=== PATIENT | male | born 1945 | race Caucasian/White ===

== ENCOUNTER 2018-05-09 11:20 | Emergency (ER) | payer MEDICARE ==
[2018-05-09 11:39] VITALS: O2SAT 97
[2018-05-09 12:26] LABS: BASOPHIL % 0.2 % (0.0-0.4); Basophil (Absolute #) 0.02 (0-0.4); Eosinophil % 6.6 % (0.00-5.0); Eosinophil (Absolute #) 0.58 (0-0.5); Granulocyte Absolute (ANC) 6.35 (1.4-6.9); Granulocytes % 72.2 % (36.0-66.0); Hematocrit 33.2 % (42-50); Hemoglobin 10.7 gm/dl (12.5-18.0); Lymphocyte (Absolute #) 1.11 (1.0-4.6); Lymphocytes % 12.6 % (24.0-44.0); Mean Cell Volume 98.8 fl (78-100); Mean Corpuscular Hemoglobin 31.8 pg (26-32); Mean Corpuscular Hgb Concent. 32.2 g/dl (32-36); Mean Platelet Volume 10.6 fl (6-9.5); Monocyte (Absolute #) 0.74 (0.0-1.3); Monocytes % 8.4 % (0.0-12.0); Platelet Count 171 K/mm3 (150-450); Red Blood Count 3.36 M/mm3 (4.1-5.6); Red Cell Distribution Width 15.7 % (11.5-14.0); White Blood Count 8.8 K/mm3 (4.0-10.5)
[2018-05-09 12:30] LABS: ALBUMIN 4.2 g/dL (3.5-5.0); ANION GAP 25.3 MEQ/L (5-15); BILIRUBIN,TOTAL 0.4 mg/dL (0.2-1.3); Calcium 8.8 mg/dL (8.4-10.2); Potassium 5.6 mmol/L (3.5-5.1)
--- NOTE | 2018-05-09 12:58 | XRAY ---
Indication: Status post fall. Multiple contiguous axial images obtained through the head without contrast. Comparison: None Age-appropriate global atrophy and minimal periventricular degenerative micro-ischemia. No acute intracranial hemorrhage, abnormal extra-axial fluid collection, or mass effect. Fourth ventricle is midline without hydrocephalus. Bony calvarium intact. 2 cm polyp/retention cyst in the floor of the right maxillary sinus. Remaining visualized paranasal sinuses and mastoid air cells are clear. Impression: Nonacute senile brain. Incidental right maxillary sinus polyp/retention cyst. CT DI 50.53
[2018-05-09 13:11] LABS: Creatinine 1 18.44 mg/dL (0.66-1.25)
--- NOTE | 2018-05-09 13:20 | ERPHSYRPT ---
- History of Present Illness Source: patient Exam Limitations: no limitations Patient Subjective Stated Complaint: pt here for hypertension today and a fall last night. he states he was sitting in a desk chair when he bent over to pick something up he fell over, and hit hes head on right side on a table, Triage Nursing Assessment: pt arrived per wc, alert, resp easy, skin w/d/p. has slight contusion to right side on head and swelling and bruising to left knee, pt able to get self up with minimal assist of one, pt is alert, with no facial drooping, pt has missed one diaylasis apt this week Physician History: Pt presented to the ED from PT. He was doing his PT and was found to have HTN, and told the therapies, that he fell yesterday, and missed two HD sessions ( Monday and today). The therapist was worried about head injury and HTN and pt was sent to the ED. Pt states, did not feel well, so skipped his HD. He denies F/C/S. No N/V/D or abdominal pain. No SOB or cough. No change in vision, sensation or paralysis. Occurred: yesterday Severity: mild Head Injury Location: temporal (on the R) Method of Injury: fell Loss of Consciousness: no loss of consciousness Associated Symptoms: denies symptoms Allergies/Adverse Reactions: aspirin Allergy (Mild, Verified 05/09/18 11:39) Runny Nose NOSE BLEEDS furosemide [From Lasix] Allergy (Mild, Verified 05/09/18 11:39) Rash mycophenolate mofetil [From CellCept] Allergy (Mild, Verified 05/09/18 11:39) Blisters CAUSED GOUT, CELLULITIS, AND RISE IN B/P cephalexin monohydrate [From Keflex] Allergy (Verified 05/09/18 11:39) sevelamer HCl [From Renagel] Allergy (Verified 05/09/18 11:39) Itching Sulfa (Sulfonamide Antibiotics) Allergy (Verified 05/09/18 11:39) Rash vancomycin Allergy (Verified 05/09/18 11:39) Rash cinacalcet [From Sensipar] Adverse Reaction (Verified 05/09/18 11:39) Rash Home Medications: Febuxostat [Uloric] 40 mg PO DAILY 09/12/12 [History] Levothyroxine Sodium 100 Mcg [Synthroid 100 Mcg] 300 mcg PO DAILY 09/12/12 [History] Multivitamin W-Minerals/Lutein [Centrum Silver Tablet] 1 each PO DAILY 10/28/14 [History] Acetaminophen 325 mg [Tylenol 325 mg] 650 mg PO STAT 03/16/17 [History] Calcium Carbonate [Tums] 1,000 mg PO UD 03/16/17 [History] Clonidine HCl 0.1 mg [Catapres 0.1 MG] 0.2 mg PO DAILY 03/16/17 [History] Denosumab 60 mg [Prolia 60 mg Injection] 60 mg SQ UD 03/16/17 [History] Loperamide HCl 2 mg [Imodium 2 mg] 1 mg PO UD 03/16/17 [History] Sevelamer Carbonate [Renvela] 800 mg PO UD 03/16/17 [History] Warfarin Sodium [Coumadin] 7.5 mg PO DAILY 03/16/17 [History] Hx Tetanus, Diphtheria Vaccination/Date Given: Yes (UP TO DATE) Hx Influenza Vaccination/Date Given: Yes Hx Pneumococcal Vaccination/Date Given: Yes - Review of Systems Constitutional: No Fever, No Chills Eyes: No Symptoms Ears, Nose, & Throat: No Symptoms Respiratory: No Cough, No Dyspnea Cardiac: No Chest Pain, No Edema, No Syncope Abdominal/Gastrointestinal: No Abdominal Pain, No Nausea, No Vomiting, No Diarrhea Musculoskeletal: No Back Pain, No Neck Pain Neurological: No Dizziness, No Focal Weakness, No Sensory Changes - Past Medical History Pertinent Past Medical History: Yes Neurological History: No Pertinent History ENT History: No Pertinent History Cardiac History: High Cholesterol, Hypertension Respiratory History: Asthma Endocrine Medical History: Hypothyroidism Musculoskeletal History: No Pertinent History GI Medical History: No Pertinent History History: Renal Disease Psycho-Social History: No Pertinent History Male Reproductive Disorders: No Pertinent History Other Medical History: GOUT. CELLULITIS IVON LOWER EXTREMETIES. GLOMERUSCLEROSIS. STAGE IV KIDNEY DISEASE. POLYCETHEMIA. ARTERIOSCLEROSIS - Past Surgical History Past Surgical History: Yes Neuro Surgical History: No Pertinent History Cardiac: Cardiac Catheterization Respiratory: No Pertinent History Gastrointestinal: No Pertinent History Genitourinary: No Pertinent History Musculoskeletal: Joint Replacement Male Surgical History: No Pertinent History Other Surgical History: APPENDIX REMOVED 1953. CYST REMOVED FROM TAILBONE 1966. CYST REMOVED FROM HEAD-1980; 1994; 2005. LEFT KNEE REPLACEMENT 01/2002. fistula placed - Social History Smoking Status: Never smoker Exposure to second hand smoke: No Drug Use: none Patient Lives Alone: No - Nursing Vital Signs Nursing Vital Signs: Initial Vital Signs Temperature 97.2 F 05/09/18 11:27 Pulse Rate 63 05/09/18 11:27 Respiratory Rate 20 05/09/18 11:27 Blood Pressure 187/96 05/09/18 11:27 O2 Sat by Pulse Oximetry 97 05/09/18 11:27 Pain Scale Pain Intensity 8 - [place] Coma Score Best Eye Response ([place]): (4) open spontaneously Best Verbal Response ([place]): (5) oriented Best Motor Response ([place]): (6) obeys commands [place] Total: 15 - Physical Exam General Appearance: no apparent distress, alert Eye Exam: bilateral eye: normal inspection, PERRL, EOMI ENT Exam: airway nml Neck Exam: supple, trachea midline, full range of motion, normal alignment Cardiovascular/Respiratory Exam: chest non-tender, normal breath sounds, regular rate/rhythm Gastrointestinal/Abdominal Exam: soft, non tender, no distention Extremity Exam: non-tender, normal range of motion, normal inspection Mental Status Exam: alert, oriented x 3, 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 No bleed.) Ordered Tests: Active Orders 24 hr Category Date Time Status HEAD WITHOUT CONTRAST [CT] Stat Exams 05/09/18 11:40 Completed CBC W DIFF Stat Lab 05/09/18 12:11 Completed CMP Stat Lab 05/09/18 12:11 Completed Lab/Rad Data: Laboratory Result Diagrams 05/09/18 12:11 05/09/18 12:11 Laboratory Results 05/09/18 05/09/18 Range/Units 12:11 12:11 WBC 8.8 (4.0-10.5) K/mm3 RBC 3.36 L (4.1-5.6) M/mm3 Hgb 10.7 L (12.5-18.0) gm/dl Hct 33.2 L (42-50) % MCV 98.8 (78-100) fl MCH 31.8 (26-32) pg MCHC 32.2 (32-36) g/dl RDW 15.7 H (11.5-14.0) % Plt Count 171 (150-450) K/mm3 MPV 10.6 H (6-9.5) fl Gran % 72.2 H (36.0-66.0) % Eos # (Auto) 0.58 H (0-0.5) Absolute Lymphs (auto) 1.11 (1.0-4.6) Absolute Monos (auto) 0.74 (0.0-1.3) Lymphocytes % 12.6 L (24.0-44.0) % Monocytes % 8.4 (0.0-12.0) % Eosinophils % 6.6 H (0.00-5.0) % Basophils % 0.2 (0.0-0.4) % Absolute Granulocytes 6.35 (1.4-6.9) Basophils # 0.02 (0-0.4) Sodium 138 (137-145) mmol/L Potassium 5.6 H (3.5-5.1) mmol/L Chloride 95 L (98-107) mmol/L Carbon Dioxide 24 (22-30) mmol/L Anion Gap 25.3 H (5-15) MEQ/L BUN 132 H (9-20) mg/dL Creatinine 18.44 H (0.66-1.25) mg/dL Estimated GFR 2.7 ML/MIN Glucose 89 (74-106) mg/dL Calcium 8.8 (8.4-10.2) mg/dL Total Bilirubin 0.40 (0.2-1.3) mg/dL AST 11 L (17-59) U/L ALT 11 (0-50) U/L Alkaline Phosphatase 46 (38-126) U/L Serum Total Protein 7.0 (6.3-8.2) g/dL Albumin 4.2 (3.5-5.0) g/dL - Progress Progress: unchanged Progress Note: 05/09/18 13:[address] of head that r/o head bleed. He did have labs that showed increased sCr and BUN as well as K of 5.6. Pt will be d/c and will go to HD straight from ER. Pt's will come to pick him up and drive him to HD. Will see patient in: office Counseled pt/family regarding: need for follow-up - Departure Time of Disposition: 13:23 Departure Disposition: Home Clinical Impression: Head injury Condition: Stable Critical Care Time: No Referrals: BERNARDA TORRES [Primary Care Provider] - Additional Instructions: Go straight to HD post D/C. Do not miss any sessions. F/U with PCP.
[2018-05-09 14:25] VITALS: BP 178/86; PULSE 68
== END 2018-05-09 14:23 | disposition home or self-care (01) ==
LOC: ED 11:20
DX: S09.90XA Unspecified injury of head, initial encounter (principal); W07.XXXA Fall from chair, initial encounter; Y93.89 Activity, other specified; Y92.89 Other specified places as the place of occurrence of the external cause; I10 Essential (primary) hypertension; Z79.01 Long term (current) use of anticoagulants; Z79.899 Other long term (current) drug therapy; E78.00 Pure hypercholesterolemia, unspecified; J45.909 Unspecified asthma, uncomplicated; E03.9 Hypothyroidism, unspecified; N28.9 Disorder of kidney and ureter, unspecified
CPT/HCPCS: 36415; 70450; 80053; 85025; 99284

== ENCOUNTER 2018-10-17 09:14 | Emergency (ER) | payer MEDICARE | END 2018-10-17 14:12 | disposition short-term general hospital (02) | LOC: ED 09:14 ==

== ENCOUNTER 2019-02-20 20:09 | Observation (INO) | payer SELFPAY ==
[2019-02-20] MEDS ORDERED: MORPHINE SULFATE 2 MG INJ IV ONE (22:15)
[2019-02-20] MEDS ORDERED: Zofran 4 MG/2 ML VIAL IV ONE (22:15)
--- NOTE | 2019-02-20 22:21 | ERPHSYRPT ---
- History of Present Illness Time Seen by Provider: 02/20/19 22:00 Source: patient, family Exam Limitations: no limitations Patient Subjective Stated Complaint: pt states he fell on monday and now has pain in l hip and bruising. states he did not want to see a dr on monday when he fell because he was not hurting so bad. pain has gotten worse over last few days and now cannot ambulate. Triage Nursing Assessment: pt alert and oriented, pt states his leg is swollen and he is having pain 8/10 in l leg, l hip is bruised and had blood blisters on l hip that broke open. Physician History: patient fell at the dialysis center after the dialysis 2 days ago on Monday. Patient is on Coumadin. The patient says he was not hurting him that on Monday so did not see the doctor but today the pain has gotten worse. Patient has a pain in the left hip and also has a skin tear in the left elbow. Has a small skin tear on the left buttock. Occurred: days ago (3) Injuries/Pain Location: upper extremity, lower extremity Loss of Consciousness: no loss of consciousness Quality: fullness, pressure, throbbing Severity of Pain-Max: mild Severity of Pain-Current: moderate Modifying Factors: Improves With: movement Associated Symptoms (Fall): extremity injury, muscle spasms, nausea, No abdominal pain, No back pain, No confusion, No chest pain, No dizziness, No headache, No lightheadedness, No ringing in ears, No seizures, No shortness of breath, No slurred speech Allergies/Adverse Reactions: aspirin Allergy (Mild, Verified 05/09/18 11:39) Runny Nose NOSE BLEEDS furosemide [From Lasix] Allergy (Mild, Verified 05/09/18 11:39) Rash mycophenolate mofetil [From CellCept] Allergy (Mild, Verified 05/09/18 11:39) Blisters CAUSED GOUT, CELLULITIS, AND RISE IN B/P ANA MARIA Inhibitors Allergy (Verified 10/17/18 09:44) Beta-Blockers (Beta-Adrenergic Bloc Allergy (Verified 10/17/18 09:44) Swelling calcium [From PhosLo] Allergy (Verified 10/17/18 09:44) cephalexin monohydrate [From Keflex] Allergy (Verified 05/09/18 11:39) clarithromycin Allergy (Verified 10/17/18 09:44) epoetin beta [From Mircera] Allergy (Verified 10/17/18 09:44) ferric citrate [From Auryxia] Allergy (Verified 10/17/18 09:44) fluticasone [From Flonase] Allergy (Verified 10/17/18 09:44) hydralazine Allergy (Verified 10/17/18 09:44) Diarrhea indomethacin Allergy (Verified 10/17/18 09:44) promethazine [From Phenergan] Allergy (Verified 10/17/18 09:44) ranitidine Allergy (Verified 10/17/18 09:44) sevelamer HCl [From Renagel] Allergy (Verified 05/09/18 11:39) Itching sucroferric oxyhydroxide [From Velphoro] Allergy (Verified 10/17/18 09:44) Sulfa (Sulfonamide Antibiotics) Allergy (Verified 05/09/18 11:39) Rash valsartan [From Diovan] Allergy (Verified 10/17/18 09:44) vancomycin Allergy (Verified 05/09/18 11:39) Rash cinacalcet [From Sensipar] Adverse Reaction (Verified 05/09/18 11:39) Rash Home Medications: Febuxostat [Uloric] 40 mg PO DAILY 09/12/12 [History] Levothyroxine Sodium 100 Mcg [Synthroid 100 Mcg] 75 mcg PO DAILY 09/12/12 [ History] Acetaminophen 325 mg [Tylenol 325 mg] 650 mg PO Q6HPRN PRN 03/16/17 [ History] Calcium Carbonate [Tums] 1,000 mg PO UD 03/16/17 [History] Clonidine HCl 0.1 mg [Catapres 0.1 MG] 0.1 mg PO UD 03/16/17 [History] Sevelamer Carbonate [Renvela] 800 mg PO UD 03/16/17 [History] Cholecalciferol (Vitamin D3) [Vitamin D3] 2,000 unit PO BID 10/17/18 [History] Hx Tetanus, Diphtheria Vaccination/Date Given: Yes (UP TO DATE) Hx Influenza Vaccination/Date Given: Yes Hx Pneumococcal Vaccination/Date Given: Yes - Review of Systems Constitutional: No Fever, No Chills Eyes: No Symptoms Ears, Nose, & Throat: No Symptoms Respiratory: No Cough, No Dyspnea Cardiac: No Chest Pain, No Edema, No Syncope Abdominal/Gastrointestinal: No Abdominal Pain, No Nausea, No Vomiting, No Diarrhea Genitourinary Symptoms: No Dysuria Musculoskeletal: Other (pain in the left hip and also has a skin tear in the left elbow. Has a small skin tear on the left buttock.), No Back Pain, No Neck Pain Skin: Other (skin tear on her left buttock and left elbow.), No Rash Neurological: No Dizziness, No Focal Weakness, No Sensory Changes Psychological: No Symptoms Endocrine: No Symptoms All Other Systems: Reviewed and Negative - Past Medical History Pertinent Past Medical History: Yes Neurological History: No Pertinent History ENT History: No Pertinent History Cardiac History: High Cholesterol, Hypertension Respiratory History: Asthma Endocrine Medical History: Hypothyroidism Musculoskeletal History: No Pertinent History GI Medical History: No Pertinent History History: Renal Disease Psycho-Social History: No Pertinent History Male Reproductive Disorders: No Pertinent History Other Medical History: GOUT. CELLULITIS IVON LOWER EXTREMETIES. GLOMERUSCLEROSIS. STAGE IV KIDNEY DISEASE. POLYCETHEMIA. ARTERIOSCLEROSIS - Past Surgical History Past Surgical History: Yes Neuro Surgical History: No Pertinent History Cardiac: Cardiac Catheterization Respiratory: No Pertinent History Gastrointestinal: No Pertinent History Genitourinary: No Pertinent History Musculoskeletal: Joint Replacement Male Surgical History: No Pertinent History Other Surgical History: APPENDIX REMOVED 1953. CYST REMOVED FROM TAILBONE 1966. CYST REMOVED FROM HEAD-1980; 1994; 2005. LEFT KNEE REPLACEMENT 01/2002. fistula placed - Social History Smoking Status: Never smoker Exposure to second hand smoke: No Drug Use: none Patient Lives Alone: No - Nursing Vital Signs Nursing Vital Signs: Initial Vital Signs Temperature 98.4 F 02/20/19 22:01 Pulse Rate 90 02/20/19 22:01 Respiratory Rate 18 02/20/19 22:01 Blood Pressure 110/82 02/20/19 22:01 O2 Sat by Pulse Oximetry 97 02/20/19 22:01 Pain Scale Pain Intensity 8 - [place] Coma Score Best Eye Response ([place]): (4) open spontaneously Best Verbal Response ([place]): (5) oriented Best Motor Response ([place]): (6) obeys commands [place] Total: 15 - Physical Exam General Appearance: no apparent distress, alert Head Injury: no evidence of injury Eye Exam: PERRL/EOMI ENT Exam: airway nml Neck Exam: normal inspection, No tenderness Respiratory/Chest Exam: normal breath sounds, No chest tenderness, No respiratory distress Cardiovascular Exam: normal heart sounds, regular rate/rhythm Gastrointestinal Exam: soft, No tenderness, No distention, No guarding, No ecchymosis Back Exam: normal inspection, No vertebral tenderness Extremity Exam: normal inspection, normal range of motion, pelvis stable, other (left HEENT: Painful, tender, swollen, bruised, subcutaneous hematoma. Pain volar range of motion. The skin tears present. Left elbow skin tear. Normal distal neurovascular function.), No deformities Neurologic Exam: alert, oriented x 3, cooperative, sensation nml, No motor deficits Skin Exam: normal color, warm, dry, other (left HEENT: Painful, tender, swollen , bruised, subcutaneous hematoma. Pain volar range of motion. The skin tears present. Left elbow skin tear. Normal distal neurovascular function.) SpO2 Interpretation: normal SpO2: 97 O2 Delivery: Room Air - Course Nursing assessment & vital signs reviewed: Yes - CT Exams Other CT Interpretation: Tele-radiologist Report, Other (imaging [place] the lateral aspect of the left hip.) Ordered Tests: Active Orders 24 hr Category Date Time Status IV Insertion STAT Care 02/20/19 22:15 Active LOWER EXTREMITY WO CONTRAST [CT] Stat Exams 02/20/19 22:17 Taken CBC W DIFF Stat Lab 02/20/19 23:27 Completed CMP Stat Lab 02/20/19 23:27 Completed PROTIME WITH INR Stat Lab 02/20/19 23:27 Completed PTT Stat Lab 02/20/19 23:27 Completed Medication Summary Discontinued Medications Generic Name Dose Route Start Last Admin Trade Name Freq PRN Reason Stop Dose Admin Morphine Sulfate 2 mg 02/20/19 22:15 Morphine Sulfate 2 Mg Inj IV 02/20/19 22:16 STAT ONE Morphine Sulfate Confirm 02/20/19 23:53 Morphine Sulfate 2 Mg Inj Administered 02/20/19 23:54 Dose 2 mg .ROUTE .STK-MED ONE Ondansetron HCl 4 mg 02/20/19 22:15 Zofran 4 Mg/2 Ml Vial IV 02/20/19 22:16 STAT ONE Ondansetron HCl Confirm 02/20/19 23:52 Zofran 4 Mg/2 Ml Vial Administered 02/20/19 23:53 Dose 4 mg .ROUTE .STK-MED ONE Phytonadione 10 mg 02/20/19 23:52 Vitamin K 10 Mg/Ml IV 02/20/19 23:53 STAT ONE Phytonadione Confirm 02/20/19 23:52 Vitamin K 10 Mg/Ml Administered 02/20/19 23:53 Dose 10 mg .ROUTE .STK-MED ONE Lab/Rad Data: Laboratory Result Diagrams 02/20/19 23:27 02/20/19 23:27 Laboratory Results 02/20/19 02/20/19 02/20/19 Range/Units 23:27 23:27 23:27 WBC 10.4 (4.0-10.5) K/mm3 RBC 2.38 L (4.1-5.6) M/mm3 Hgb 7.2 L (12.5-18.0) gm/dl Hct 23.3 L (42-50) % MCV 97.9 (78-100) fl MCH 30.3 (26-32) pg MCHC 30.9 L (32-36) g/dl RDW 16.8 H (11.5-14.0) % Plt Count 161 (150-450) K/mm3 MPV 10.3 H (6-9.5) fl Gran % 73.2 H (36.0-66.0) % Eos # (Auto) 0.56 H (0-0.5) Absolute Lymphs (auto) 1.12 (1.0-4.6) Absolute Monos (auto) 1.05 (0.0-1.3) Lymphocytes % 10.7 L (24.0-44.0) % Monocytes % 10.1 (0.0-12.0) % Eosinophils % 5.4 H (0.00-5.0) % Basophils % 0.6 (0.0-0.4) % Absolute Granulocytes 7.64 H (1.4-6.9) Basophils # 0.06 (0-0.4) PT 75.3 H (8.83-12.87) SECONDS INR 6.41 H* (0.8-3.0) APTT 52.7 H (24.1-36.1) SECONDS Sodium 140 (137-145) mmol/L Potassium 4.5 (3.5-5.1) mmol/L Chloride 96 L (98-107) mmol/L Carbon Dioxide 30 (22-30) mmol/L Anion Gap 17.4 H (5-15) MEQ/L BUN 79 H (9-20) mg/dL Creatinine 10.03 H (0.66-1.25) mg/dL Estimated GFR 5.5 ML/MIN Glucose 73 L (74-106) mg/dL Calcium 9.2 (8.4-10.2) mg/dL Total Bilirubin 0.50 (0.2-1.3) mg/dL AST 19 (17-59) U/L ALT 13 (0-50) U/L Alkaline Phosphatase 55 (38-126) U/L Serum Total Protein 7.0 (6.3-8.2) g/dL Albumin 3.8 (3.5-5.0) g/dL - Progress Progress: improved Progress Note: 02/21/19 00:03 patient's INR is 6.41. He has a huge left hip hematoma with a skin tear. I discussed this with Dr. Arboleda. He agreed to admit the patient overnight for observation because of the high INR and a left hip pain due to hematoma. Discussed with : Merle Will see patient in: hospital (observation) Counseled pt/family regarding: diagnosis, rad results - Departure Departure Disposition: Observation Clinical Impression: Hematoma of left hip Qualifiers: Encounter type: initial encounter Qualified Code(s): S70.02XA - Contusion of left hip, initial encounter Coumadin toxicity Qualifiers: Encounter type: initial encounter Injury intent: accidental or unintentional Qualified Code(s): T45.511A - Poisoning by anticoagulants, accidental ( unintentional), initial encounter Condition: Stable Critical Care Time: No Referrals: PARTHA NAPIER [LOCATION] -
[2019-02-20 23:28] LABS: Absolute Neutrophil Ct (ANC) 7.64 (1.4-6.9); BASOPHIL % 0.6 % (0.0-0.4); Basophil (Absolute #) 0.06 (0-0.4); Eosinophil % 5.4 % (0.00-5.0); Eosinophil (Absolute #) 0.56 (0-0.5); Hematocrit 23.3 % (42-50); Hemoglobin 7.2 gm/dl (12.5-18.0); Lymphocyte (Absolute #) 1.12 (1.0-4.6); Lymphocytes % 10.7 % (24.0-44.0); Mean Cell Volume 97.9 fl (78-100); Mean Corpuscular Hemoglobin 30.3 pg (26-32); Mean Corpuscular Hgb Concent. 30.9 g/dl (32-36); Mean Platelet Volume 10.3 fl (6-9.5); Monocyte (Absolute #) 1.05 (0.0-1.3); Monocytes % 10.1 % (0.0-12.0); Neutrophil % 73.2 % (36.0-66.0); Platelet Count 161 K/mm3 (150-450); Red Blood Count 2.38 M/mm3 (4.1-5.6); Red Cell Distribution Width 16.8 % (11.5-14.0); White Blood Count 10.4 K/mm3 (4.0-10.5)
[2019-02-20 23:42] LABS: ALBUMIN 3.8 g/dL (3.5-5.0); ANION GAP 17.4 MEQ/L (5-15); BILIRUBIN,TOTAL 0.5 mg/dL (0.2-1.3); Calcium 9.2 mg/dL (8.4-10.2); Creatinine 1 10.03 mg/dL (0.66-1.25); Potassium 4.5 mmol/L (3.5-5.1)
[2019-02-20 23:43] LABS: PTT 52.7 SECONDS (24.1-36.1)
[2019-02-20 23:46] LABS: PROTIME 75.3 SECONDS (8.83-12.87)
[2019-02-20 23:50] LABS: INR 6.41 (0.8-3.0)
[2019-02-20] MEDS ORDERED: Vitamin K 10 MG/ML ONE (23:52)
[2019-02-20] MEDS ORDERED: Zofran 4 MG/2 ML VIAL ONE (23:52)
[2019-02-20] MEDS ORDERED: Vitamin K 10 MG/ML IV ONE (23:52)
[2019-02-20] MEDS ORDERED: MORPHINE SULFATE 2 MG INJ ONE (23:53)
[2019-02-21] MEDS ORDERED: Zofran 4 MG/2 ML VIAL IV PRN (00:51)
[2019-02-21] MEDS: MORPHINE SULFATE 2 MG INJ IV PRN ×3 (02:01→11:47)
[2019-02-21] MEDS ORDERED: PROVENTIL COMMON CANISTER IH SCH (07:00)
--- NOTE | 2019-02-21 08:48 | XRAY ---
Indication: Pain/hematoma following fall. Multiple contiguous axial images obtained through the left hip. Sagittal and coronal reformatted images obtained. Comparison: None Age-appropriate osteopenia. Large lateral hematoma measuring 12.0 x 4.5 x 14 cm. No acute fracture, dislocation, or suspicious bony lesions. Mild degenerative joint space narrowing. Incidental moderate scattered vascular calcifications and small fatty left inguinal hernia. Remaining visualized noncontrasted soft tissues unremarkable. Impression: 1. Large lateral subcutaneous hematoma. Negative for acute fracture/dislocation. 2. Incidental osteopenia, degenerative changes, and fatty left inguinal hernia. Comment: Preliminary interpretation was made by [facility]. No critical discrepancy. CT DI 40.81
--- NOTE | 2019-02-21 09:07 | PCM.SSS ---
History of Present Illness - Chief Complaint Chief Complaint: fall and bruised hip History of Present Illness: is a 73 year old male.patient fell at the dialysis center after the dialysis 2 days ago on Monday. Patient is on Coumadin. The patient says he was not hurting him that on Monday so did not see the doctor but today the pain has gotten worse. Patient has a pain in the left hip and also has a skin tear in the left elbow. Has a small skin tear on the left buttock. Occurred: days ago (3) Injuries/Pain Location: upper extremity, lower extremity Loss of Consciousness: no loss of consciousness Quality: fullness, pressure, throbbing Severity of Pain-Max: mild Severity of Pain-Current: moderate Modifying Factors: Improves With: movement Associated Symptoms (Fall): extremity injury, muscle spasms, nausea, No abdominal pain, No back pain, No confusion, No chest pain, No dizziness, No headache, No lightheadedness, No ringing in ears, No seizures, No shortness of breath, No slurred speech - Review of Systems Constitutional: No Fever, No Chills Eyes: No Symptoms Ears, Nose, & Throat: No Symptoms Respiratory: No Cough, No Short Of Breath Cardiac: No Chest Pain, No Edema, No Syncope Abdominal/Gastrointestinal: No Abdominal Pain, No Nausea, No Vomiting, No Diarrhea Genitourinary Symptoms: No Dysuria Musculoskeletal: Fall, Injury, Joint Redness, No Back Pain, No Neck Pain Skin: No Rash Neurological: No Dizziness, No Focal Weakness, No Sensory Changes Psychological: No Symptoms Endocrine: No Symptoms Hematologic/Lymphatic: No Symptoms Immunological/Allergic: No Symptoms Medications & Allergies Home Medications: Home Medication List Febuxostat [Uloric] 40 mg PO DAILY 09/12/12 [History Confirmed 02/21/19] Levothyroxine Sodium 100 Mcg [Synthroid 100 Mcg] 150 mcg PO DAILY 09/12/12 [History Confirmed 02/21/19] Acetaminophen 325 mg [Tylenol 325 mg] 650 mg PO Q6HPRN PRN 03/16/17 [ History Confirmed 02/21/19] Calcium Carbonate [Tums] 1,000 mg PO TID PRN 03/16/17 [History Confirmed ] Clonidine HCl 0.1 mg [Catapres 0.1 MG] 0.2 mg PO DAILY 03/16/17 [History Confirmed 02/21/19] Sevelamer Carbonate [Renvela] 4,000 mg PO AC 03/16/17 [History Confirmed ] Cholecalciferol (Vitamin D3) [Vitamin D3] 4,000 unit PO DAILY 10/17/18 [History Confirmed 02/21/19] Albuterol Common Canister [Proventil Common Canister] 2 inh PO Q6H PRN PRN 02/21/19 [History Confirmed 02/21/19] HydrALAzine HCL 25 MG TAB [Apresoline 25 MG TABLET] 25 mg PO BID 02/21/19 [History Confirmed 02/21/19] Warfarin Sodium 2 mg [Coumadin 2 MG] 4 mg PO BID 02/21/19 [History Confirmed 02/21/19] Allergies/Adverse Reactions: Allergies Allergy/AdvReac Type Severity Reaction Status Date / Time aspirin Allergy Mild Runny Nose Verified 02/21/19 01:15 furosemide [From Lasix] Allergy Mild Rash Verified 02/21/19 01:15 mycophenolate mofetil Allergy Mild Blisters Verified 02/21/19 01:15 [From CellCept] ANA MARIA Inhibitors Allergy Verified 02/21/19 01:15 Beta-Blockers Allergy Swelling Verified 02/21/19 01:15 (Beta-Adrenergic Bloc calcium [From PhosLo] Allergy Verified 02/21/19 01:15 cephalexin monohydrate Allergy Verified 02/21/19 01:15 [From Keflex] clarithromycin Allergy Verified 02/21/19 01:15 epoetin beta [From Mircera] Allergy Verified 02/21/19 01:15 ferric citrate [From Auryxia] Allergy Verified 02/21/19 01:15 fluticasone [From Flonase] Allergy Verified 02/21/19 01:15 indomethacin Allergy Verified 02/21/19 01:15 promethazine [From Phenergan] Allergy Verified 02/21/19 01:15 ranitidine Allergy Verified 02/21/19 01:15 sevelamer HCl [From Renagel] Allergy Itching Verified 02/21/19 01:15 sucroferric oxyhydroxide Allergy Verified 02/21/19 01:15 [From Velphoro] Sulfa (Sulfonamide Allergy Rash Verified 02/21/19 01:15 Antibiotics) valsartan [From Diovan] Allergy Verified 02/21/19 01:15 vancomycin Allergy Rash Verified 02/21/19 01:15 cinacalcet [From Sensipar] AdvReac Rash Verified 02/21/19 01:15 - Past Medical History Past Medical History: Yes Neurological History: No Pertinent History ENT History: No Pertinent History, Other Cardiac History: High Cholesterol, Hypertension Respiratory History: Asthma Endocrine Medical History: Hypothyroidism Musculoskelatal History: No Pertinent History GI Medical History: No Pertinent History History: Dialysis, Renal Disease Pyscho-Social History: No Pertinent History Male Reproductive Disorders: No Pertinent History Comment: GOUT. CELLULITIS IVON LOWER EXTREMETIES. GLOMERUSCLEROSIS. STAGE IV KIDNEY DISEASE. POLYCETHEMIA. ARTERIOSCLEROSIS. 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 CYST REMOVED FROM TAILBONE 1966. CYST REMOVED FROM HEAD-1980; 1994; 2005. LEFT KNEE REPLACEMENT 01/2002 nichol 2013 knee replaced. fistula placed - Social History Smoking Status: Never smoker Exposure to second hand smoke: No Alcohol: None Drug Use: none - Physical Exam Vital Signs: Vital Signs - 24 hr Temp Pulse Resp BP Pulse Ox 02/21/19 07:32 98.1 F 91 H 20 129/58 94 L 02/21/19 07:19 96 H 20 95 02/21/19 04:00 97.7 F 86 20 135/62 97 02/21/19 02:55 90 20 93 L 02/21/19 01:11 98.2 F 94 H 20 116/72 97 02/21/19 00:51 98.2 F 94 H 20 97 02/21/19 00:40 102 H 18 113/72 02/21/19 00:03 97 02/20/19 23:50 97 H 21 114/80 93 L 02/20/19 23:40 105 H 22 115/92 97 02/20/19 22:50 102 H 22 115/84 96 02/20/19 22:01 98.4 F 90 18 110/82 97 General Appearance: no apparent distress, alert Neurologic Exam: alert, oriented x 3, cooperative, normal mood/affect, nml cerebellar function, nml station & gait, sensation nml, No motor deficits Eye Exam: PERRL/EOMI, eyes nml inspection Ears, Nose, Throat Exam: normal ENT inspection, TMs normal, pharynx normal, moist mucous membranes Neck Exam: normal inspection, non-tender, supple, full range of motion Respiratory Exam: normal breath sounds, lungs clear, No respiratory distress Cardiovascular Exam: regular rate/rhythm, normal heart sounds, normal peripheral pulses Gastrointestinal/Abdomen Exam: soft, normal bowel sounds, No tenderness, No mass Back Exam: normal inspection, normal range of motion, No CVA tenderness, No vertebral tenderness Extremity Exam: normal inspection, normal range of motion, pelvis stable, contusions, other Skin Exam: normal color, warm, dry, No rash Lymphatic Exam: No adenopathy Results - Labs Lab/Micro Results: Lab Results-Last 24 Hours 02/20/19 02/20/19 02/20/19 Range/Units 23:27 23:27 23:27 WBC 10.4 (4.0-10.5) K/mm3 RBC 2.38 L (4.1-5.6) M/mm3 Hgb 7.2 L (12.5-18.0) gm/dl Hct 23.3 L (42-50) % MCV 97.9 (78-100) fl MCH 30.3 (26-32) pg MCHC 30.9 L (32-36) g/dl RDW 16.8 H (11.5-14.0) % Plt Count 161 (150-450) K/mm3 MPV 10.3 H (6-9.5) fl Gran % 73.2 H (36.0-66.0) % Eos # (Auto) 0.56 H (0-0.5) Absolute Lymphs (auto) 1.12 (1.0-4.6) Absolute Monos (auto) 1.05 (0.0-1.3) Lymphocytes % 10.7 L (24.0-44.0) % Monocytes % 10.1 (0.0-12.0) % Eosinophils % 5.4 H (0.00-5.0) % Basophils % 0.6 (0.0-0.4) % Absolute Granulocytes 7.64 H (1.4-6.9) Basophils # 0.06 (0-0.4) PT 75.3 H (8.83-12.87) SECONDS INR 6.41 H* (0.8-3.0) APTT 52.7 H (24.1-36.1) SECONDS Sodium 140 (137-145) mmol/L Potassium 4.5 (3.5-5.1) mmol/L Chloride 96 L (98-107) mmol/L Carbon Dioxide 30 (22-30) mmol/L Anion Gap 17.4 H (5-15) MEQ/L BUN 79 H (9-20) mg/dL Creatinine 10.03 H (0.66-1.25) mg/dL Estimated GFR 5.5 ML/MIN Glucose 73 L (74-106) mg/dL Calcium 9.2 (8.4-10.2) mg/dL Total Bilirubin 0.50 (0.2-1.3) mg/dL AST 19 (17-59) U/L ALT 13 (0-50) U/L Alkaline Phosphatase 55 (38-126) U/L Serum Total Protein 7.0 (6.3-8.2) g/dL Albumin 3.8 (3.5-5.0) g/dL - Radiology Impressions Radiology Exams & Impressions: Radiology Procedures Category Date Time Status LOWER EXTREMITY WO CONTRAST [CT] Stat Exams 02/20/19 22:17 Completed - Other Procedures and Tests Respiratory Therapy 02/21/19 02:34 Respiratory Therapy Assessment DAILY Assessment/Plan (1) Coumadin toxicity Current Visit: Yes Status: Acute Qualifiers: Encounter type: initial encounter Injury intent: accidental or unintentional Qualified Code(s): T45.511A - Poisoning by anticoagulants, accidental (unintentional), initial encounter Code(s): T45.511A - POISONING BY ANTICOAGULANTS, ACCIDENTAL, INIT (2) Hematoma of left hip Current Visit: Yes Status: Acute Qualifiers: Encounter type: initial encounter Qualified Code(s): S70.02XA - Contusion of left hip, initial encounter Code(s): S70.02XA - CONTUSION OF LEFT HIP, INITIAL ENCOUNTER Hospital Summary - Hospital Course Hospital Course: Chief Complaint Diagnosis Hip Hematoma, Coumadin toxicity Allergies Allergy/AdvReac Type Severity Reaction Status Date / Time aspirin Allergy Mild Runny Nose Verified 02/21/19 01:15 furosemide [From Lasix] Allergy Mild Rash Verified 02/21/19 01:15 mycophenolate mofetil Allergy Mild Blisters Verified 02/21/19 01:15 [From CellCept] ANA MARIA Inhibitors Allergy Verified 02/21/19 01:15 Beta-Blockers Allergy Swelling Verified 02/21/19 01:15 (Beta-Adrenergic Bloc calcium [From PhosLo] Allergy Verified 02/21/19 01:15 cephalexin monohydrate Allergy Verified 02/21/19 01:15 [From Keflex] clarithromycin Allergy Verified 02/21/19 01:15 epoetin beta [From Mircera] Allergy Verified 02/21/19 01:15 ferric citrate [From Auryxia] Allergy Verified 02/21/19 01:15 fluticasone [From Flonase] Allergy Verified 02/21/19 01:15 indomethacin Allergy Verified 02/21/19 01:15 promethazine [From Phenergan] Allergy Verified 02/21/19 01:15 ranitidine Allergy Verified 02/21/19 01:15 sevelamer HCl [From Renagel] Allergy Itching Verified 02/21/19 01:15 sucroferric oxyhydroxide Allergy Verified 02/21/19 01:15 [From Velphoro] Sulfa (Sulfonamide Allergy Rash Verified 02/21/19 01:15 Antibiotics) valsartan [From Diovan] Allergy Verified 02/21/19 01:15 vancomycin Allergy Rash Verified 02/21/19 01:15 cinacalcet [From Sensipar] AdvReac Rash Verified 02/21/19 01:15 Vital Signs (Last 24 hours) Temp Pulse Resp BP Pulse Ox 02/21/19 07:32 98.1 F 91 H 20 129/58 94 L 02/21/19 07:19 96 H 20 95 02/21/19 04:00 97.7 F 86 20 135/62 97 02/21/19 02:55 90 20 93 L 02/21/19 01:11 98.2 F 94 H 20 116/72 97 02/21/19 00:51 98.2 F 94 H 20 97 02/21/19 00:40 102 H 18 113/72 02/21/19 00:03 97 02/20/19 23:50 97 H 21 114/80 93 L 02/20/19 23:40 105 H 22 115/92 97 02/20/19 22:50 102 H 22 115/84 96 02/20/19 22:01 98.4 F 90 18 110/82 97 Home Medications Medication Instructions Recorded Confirmed Last Taken Type Albuterol Common Canister 2 inh PO Q6H PRN PRN 02/21/19 02/21/19 02/18/19 History [Proventil Common Canister] HydrALAzine HCL 25 MG TAB 25 mg PO BID 02/21/19 02/21/19 Unknown History [Apresoline 25 MG TABLET] Warfarin Sodium 2 mg [Coumadin 4 mg PO BID 02/21/19 02/21/19 02/19/19 17:00 History 2 MG] Current Medications Generic Name Dose Route Start Last Admin Trade Name Freradha PRN Reason Stop Dose Admin Albuterol Sulfate 2 puff 02/21/19 07:00 02/21/19 07:15 Proventil Common Canister IH 03/23/19 06:59 2 puff TIDRT LOS Administration Morphine Sulfate 2 mg 02/21/19 00:51 02/21/19 07:57 Morphine Sulfate 2 Mg Inj IV 02/26/19 00:50 2 mg Q4H PRN PRN Administration PAIN Ondansetron HCl 4 mg 02/21/19 00:51 02/21/19 07:59 Zofran 4 Mg/2 Ml Vial IV 03/23/19 00:50 4 mg Q6H PRN PRN Administration NAUSEA/VOMITING Discontinued Medications Generic Name Dose Route Start Last Admin Trade Name Freq PRN Reason Stop Dose Admin Morphine Sulfate 2 mg 02/20/19 22:15 02/21/19 00:02 Morphine Sulfate 2 Mg Inj IV 02/20/19 22:16 2 mg STAT ONE Administration Morphine Sulfate Confirm 02/20/19 23:53 Morphine Sulfate 2 Mg Inj Administered 02/20/19 23:54 Dose 2 mg .ROUTE .STK-MED ONE Ondansetron HCl 4 mg 02/20/19 22:15 02/21/19 00:03 Zofran 4 Mg/2 Ml Vial IV 02/20/19 22:16 4 mg STAT ONE Administration Ondansetron HCl Confirm 02/20/19 23:52 Zofran 4 Mg/2 Ml Vial Administered 02/20/19 23:53 Dose 4 mg .ROUTE .STK-MED ONE Phytonadione 10 mg 02/20/19 23:52 02/21/19 00:03 Vitamin K 10 Mg/Ml IV 02/20/19 23:53 10 mg STAT ONE Administration Phytonadione Confirm 02/20/19 23:52 Vitamin K 10 Mg/Ml Administered 02/20/19 23:53 Dose 10 mg .ROUTE .STK-MED ONE Intake & Output (Last 24 hours) 02/18/19 02/19/19 02/20/19 02/21/19 11:59 11:59 11:59 11:59 Intake Total 320 Output Total 120 Balance 200 Weight 118.6 kg Laboratory Results (Last 24 hours) 02/20/19 02/20/19 02/20/19 23:27 23:27 23:27 WBC 10.4 RBC 2.38 L Hgb 7.2 L Hct 23.3 L MCV 97.9 MCH 30.3 MCHC 30.9 L RDW 16.8 H Plt Count 161 MPV 10.3 H Gran % 73.2 H Eos # (Auto) 0.56 H Absolute Lymphs (auto) 1.12 Absolute Monos (auto) 1.05 Lymphocytes % 10.7 L Monocytes % 10.1 Eosinophils % 5.4 H Basophils % 0.6 Absolute Granulocytes 7.64 H Basophils # 0.06 PT 75.3 H INR 6.41 H* APTT 52.7 H Sodium 140 Potassium 4.5 Chloride 96 L Carbon Dioxide 30 Anion Gap 17.4 H BUN 79 H Creatinine 10.03 H Estimated GFR 5.5 Glucose 73 L Calcium 9.2 Total Bilirubin 0.50 AST 19 ALT 13 Alkaline Phosphatase 55 Serum Total Protein 7.0 Albumin 3.8 Orders (Last 24 hours) Category Date Time Status Up With Assistance ROUTINE Activity 02/21/19 00:51 Active Code Status Order ROUTINE Care 02/21/19 00:51 Active IV Care Q6H Care 02/21/19 00:51 Active IV Insertion STAT Care 02/20/19 22:[address] in Observation ROUTINE Care 02/21/19 00:51 Active Vital Signs Q4H Care 02/21/19 00:51 Active Metal Slitter/Discharge Plan Cons 02/21/19 02:06 Active Low Sodium Diet 02/21/19 Breakfast Active LOWER EXTREMITY WO CONTRAST [CT] Stat Exams 02/20/19 22:17 Completed CBC W DIFF Stat Lab 02/20/19 23:27 Completed CMP Stat Lab 02/20/19 23:27 Completed PROTIME WITH INR Stat Lab 02/20/19 23:27 Completed PTT Stat Lab 02/20/19 23:27 Completed Albuterol Common Canister [Proventil Common Canister Med 02/21/19 07:00 Active ] 2 puff IH TIDRT Morphine Sulfate 2 mg Inj Med 02/20/19 23:53 Discontinued 2 mg .ROUTE .STK-MED ONE Morphine Sulfate 2 mg Inj Med 02/21/19 00:51 Active 2 mg IV Q4H PRN PRN Morphine Sulfate 2 mg Inj Med 02/20/19 22:15 Discontinued 2 mg IV STAT ONE Ondansetron HCl 4 mg/2 ml [Zofran 4 MG/2 ML VIAL] Med 02/20/19 23:52 Discontinued 4 mg .ROUTE .STK-MED ONE Ondansetron HCl 4 mg/2 ml [Zofran 4 MG/2 ML VIAL] Med 02/21/19 00:51 Active 4 mg IV Q6H PRN PRN Ondansetron HCl 4 mg/2 ml [Zofran 4 MG/2 ML VIAL] Med 02/20/19 22:15 Discontinued 4 mg IV STAT ONE Phytonadione 10 mg [Vitamin K 10 MG/ML] Med 02/20/19 23:52 Discontinued 10 mg .ROUTE .STK-MED ONE Phytonadione 10 mg [Vitamin K 10 MG/ML] Med 02/20/19 23:52 Discontinued 10 mg IV STAT ONE OT Screen per Nursing Assess OT 02/21/19 02:06 Active PT Screen per Nursing Assess PT 02/21/19 02:06 Active Pulse Oximetry .spot check RT 02/21/19 02:33 Active RT Screen per Nursing Assess RT 02/21/19 02:06 Completed Respiratory Therapy Assessment DAILY RT 02/21/19 02:34 Active Transfer Order Routine Transfer 02/21/19 Completed - Vitals & Intake/Output Vital Signs: Vital Signs Temperature 98.1 F 02/21/19 07:32 Pulse Rate 91 H 02/21/19 07:32 Respiratory Rate 20 02/21/19 07:32 Blood Pressure 129/58 02/21/19 07:32 O2 Sat by Pulse Oximetry 94 L 02/21/19 07:32 Intake & Output: Intake & Output 02/18/19 02/19/19 02/20/19 02/21/19 11:59 11:59 11:59 11:59 Intake Total 120 Output Total 120 Balance 0 Weight 118.6 kg - Lab Result Diagrams: 02/20/19 23:27 02/20/19 23:27 Lab Results-Last 24 Hrs: Lab Results-Last 24 Hours 02/20/19 02/20/19 02/20/19 Range/Units 23:27 23:27 23:27 WBC 10.4 (4.0-10.5) K/mm3 RBC 2.38 L (4.1-5.6) M/mm3 Hgb 7.2 L (12.5-18.0) gm/dl Hct 23.3 L (42-50) % MCV 97.9 (78-100) fl MCH 30.3 (26-32) pg MCHC 30.9 L (32-36) g/dl RDW 16.8 H (11.5-14.0) % Plt Count 161 (150-450) K/mm3 MPV 10.3 H (6-9.5) fl Gran % 73.2 H (36.0-66.0) % Eos # (Auto) 0.56 H (0-0.5) Absolute Lymphs (auto) 1.12 (1.0-4.6) Absolute Monos (auto) 1.05 (0.0-1.3) Lymphocytes % 10.7 L (24.0-44.0) % Monocytes % 10.1 (0.0-12.0) % Eosinophils % 5.4 H (0.00-5.0) % Basophils % 0.6 (0.0-0.4) % Absolute Granulocytes 7.64 H (1.4-6.9) Basophils # 0.06 (0-0.4) PT 75.3 H (8.83-12.87) SECONDS INR 6.41 H* (0.8-3.0) APTT 52.7 H (24.1-36.1) SECONDS Sodium 140 (137-145) mmol/L Potassium 4.5 (3.5-5.1) mmol/L Chloride 96 L (98-107) mmol/L Carbon Dioxide 30 (22-30) mmol/L Anion Gap 17.4 H (5-15) MEQ/L BUN 79 H (9-20) mg/dL Creatinine 10.03 H (0.66-1.25) mg/dL Estimated GFR 5.5 ML/MIN Glucose 73 L (74-106) mg/dL Calcium 9.2 (8.4-10.2) mg/dL Total Bilirubin 0.50 (0.2-1.3) mg/dL AST 19 (17-59) U/L ALT 13 (0-50) U/L Alkaline Phosphatase 55 (38-126) U/L Serum Total Protein 7.0 (6.3-8.2) g/dL Albumin 3.8 (3.5-5.0) g/dL - Radiology Exams Ordered Rad Exams-Entire Visit: Radiology Procedures Category Date Time Status LOWER EXTREMITY WO CONTRAST [CT] Stat Exams 02/20/19 22:17 Completed - Procedures and Test Procedures and Tests throughout Hospitalization: Therapy Orders & Screens 02/21/19 02:06 OT Screen per Nursing Assess Comment: Protocol Order Physician Instructions: Greater than 3 points order OT Admission Screening Reason For Exam: Triggered on Admission Diagnosis: Hip Hematoma, Coumadin toxicity Open Wound/Cellutlitis/Pressure Ulcers: Yes Acute Fx/ORIF/Change in wt bearing status: Yes Severe MUSCULOSKELETAL pain: Yes ADL Dysfunction: Yes Acute CVA w/Hemiparesis/Hemiplegia: No Decreased Functional Mobility/Strength: Yes Sprain/Strain: No Acute Post-op Mobility Dysfunction: No Total Points: 19 PT Screen per Nursing Assess Comment: Protocol Order Physician Instructions: Greater than 3 points order PT Admission Screenin Reason For Exam: Triggered on Admission Diagnosis: Hip Hematoma, Coumadin toxicity Open Wound/Cellutlitis/Pressure Ulcers: Yes Acute Fx/ORIF/Change in wt bearing status: Yes Severe MUSCULOSKELETAL pain: Yes ADL Dysfunction: Yes Acute CVA w/Hemiparesis/Hemiplegia: No Decreased Functional Mobility/Strength: Yes Sprain/Strain: No Acute Post-op Mobility Dysfunction: No Total Points: 19 RT Screen per Nursing Assess Comment: Protocol Order Physician Instructions: Greater than 3 points order RT Admission Screen Reason For Exam: Triggered on Admission Diagnosis: Hip Hematoma, Coumadin toxicity Diagnosis: Hip Hematoma, Coumadin toxicity Pneumonia: No Home O2: No Asthma: Yes CHF: No Home CPAP/BIPAP: No Home Nebs/MDI: Yes: Ventolin Total Points: 9 02/21/19 02:34 Respiratory Therapy Assessment DAILY Comment: Diagnosis: Hip Hematoma, Coumadin toxicity - Discharge Discharge Date: 02/21/19 [facility] Condition: Stable Prescriptions: No Action Febuxostat [Uloric] 40 mg PO DAILY Levothyroxine Sodium 100 Mcg [Synthroid 100 Mcg] 150 mcg PO DAILY Calcium Carbonate [Tums] 1,000 mg PO TID PRN PRN Reason: Indigestion Acetaminophen 325 mg [Tylenol 325 mg] 650 mg PO Q6HPRN PRN PRN Reason: Pain Clonidine HCl 0.1 mg [Catapres 0.1 MG] 0.2 mg PO DAILY Sevelamer Carbonate [Renvela] 4,000 mg PO AC Cholecalciferol (Vitamin D3) [Vitamin D3] 4,000 unit PO DAILY Albuterol Common Canister [Proventil Common Canister] 2 inh PO Q6H PRN PRN PRN Reason: Asthma Warfarin Sodium 2 mg [Coumadin 2 MG] 4 mg PO BID HydrALAzine HCL 25 MG TAB [Apresoline 25 MG TABLET] 25 mg PO BID Additional Instructions: Patient is going to dialysis center. Patient is transferred to [facility] under Dr Bakari Conrad Follow up with: BERNARDA TORRES [Primary Care Provider] - 1 Week GARY KEENAN [CONSULTING PHYSICIAN] - 1 Week
[2019-02-21 11:22] VITALS: BP 126/64; PULSE 70; O2SAT 98
[2019-02-21] MEDS ORDERED: PROVENTIL COMMON CANISTER IH PRN (11:32)
[2019-02-21] MEDS ORDERED: TYLENOL 325 MG PO PRN (11:32)
[2019-02-21] MEDS ORDERED: SEVELAMER CARBONATE 4000 MG PO SCH (11:45)
[2019-02-21] MEDS ORDERED: EMLA Cream 5 GM TP SCH (11:45)
[2019-02-21] MEDS ORDERED: Catapres 0.1 MG PO SCH (12:00)
[2019-02-21] MEDS ORDERED: SYNTHROID 150 MCG PO SCH (12:00)
[2019-02-21] MEDS ORDERED: SYNTHROID 100 MCG PO SCH (12:00)
[2019-02-21] MEDS ORDERED: Apresoline 25 MG TABLET PO SCH (12:00)
[2019-02-21] MEDS ORDERED: VITAMIN D PO SCH (12:00)
[2019-02-22] MEDS ORDERED: NON-FORMULARY ITEM (Cholecalciferol (Vitamin D3) [Vitamin D3] 2,000 UNIT) PO SCH (10:00)
[2019-02-22] MEDS ORDERED: Coumadin 2 MG PO SCH (10:00)
[2019-02-22] MEDS ORDERED: NON-FORMULARY ITEM (Febuxostat [Uloric] 40 MG) PO SCH (10:00)
== END 2019-02-21 12:25 | disposition short-term general hospital (02) ==
LOC: ED 20:09 → MED SURG 02-21 00:35
PROVIDERS: ADMIT General Practice; ATTEND General Practice
DX: T45.511A Poisoning by anticoagulants, accidental (unintentional), initial encounter (principal); M25.552 Pain in left hip; S70.02XA Contusion of left hip, initial encounter; S51.012A Laceration without foreign body of left elbow, initial encounter; S31.821A Laceration without foreign body of left buttock, initial encounter; I12.9 Hypertensive chronic kidney disease with stage 1 through stage 4 chronic kidney disease, or unspecified chronic kidney disease; N18.4 Chronic kidney disease, stage 4 (severe); Z99.2 Dependence on renal dialysis; E03.9 Hypothyroidism, unspecified; E78.00 Pure hypercholesterolemia, unspecified; W19.XXXA Unspecified fall, initial encounter; Z79.01 Long term (current) use of anticoagulants; Z79.899 Other long term (current) drug therapy; Y92.538 Other ambulatory health services establishments as the place of occurrence of the external cause; L03.116 Cellulitis of left lower limb; L03.115 Cellulitis of right lower limb; D75.1 Secondary polycythemia
CPT/HCPCS: 36000; 36415; 73700; 80053; 85025; 85610; 85730; 94640; 94760; 96374; 96375; 99284; G0378; J2270; J2405; J3430; A9270-GY

== ENCOUNTER 2019-09-16 11:02 | Emergency (ER) | payer MEDICARE ==
--- NOTE | 2019-09-16 11:05 | ERPHSYRPT ---
- History of Present Illness Time Seen by Provider: 09/16/19 11:05 Source: patient, family Exam Limitations: other (Patient is deaf) Physician History: This is a 73-year-old white male who is taking Coumadin daily and presents with right lower extremity pain from his knee to his right hip. He does not recall falling or injuring this extremity. He thinks his right lower leg is slightly swollen. Patient does have a history of CHF and COPD. He has chronic mild shortness of air. The right lower extremity pain has been present since Monday per 's report. Method of Injury: other (No known injury) Quality: aching Severity of Pain-Max: mild Severity of Pain-Current: mild Lower Extremities Pain: hip: right, knee: right, thigh: right Modifying Factors: Improves With: movement Associated Symptoms: other (Patient can bear weight while using his walker but hurts to do so in the above stated areas) Allergies/Adverse Reactions: aspirin Allergy (Mild, Verified 09/16/19 11:24) Runny Nose NOSE BLEEDS furosemide [From Lasix] Allergy (Mild, Verified 09/16/19 11:24) Rash mycophenolate mofetil [From CellCept] Allergy (Mild, Verified 09/16/19 11:24) Blisters CAUSED GOUT, CELLULITIS, AND RISE IN B/P ANA MARIA Inhibitors Allergy (Verified 09/16/19 11:24) Beta-Blockers (Beta-Adrenergic Bloc Allergy (Verified 09/16/19 11:24) Swelling calcium [From PhosLo] Allergy (Verified 09/16/19 11:24) cephalexin monohydrate [From Keflex] Allergy (Verified 09/16/19 11:24) clarithromycin Allergy (Verified 09/16/19 11:24) epoetin beta [From Mircera] Allergy (Verified 09/16/19 11:24) ferric citrate [From Auryxia] Allergy (Verified 09/16/19 11:24) fluticasone [From Flonase] Allergy (Verified 09/16/19 11:24) indomethacin Allergy (Verified 09/16/19 11:24) promethazine [From Phenergan] Allergy (Verified 09/16/19 11:24) ranitidine Allergy (Verified 09/16/19 11:24) sevelamer HCl [From Renagel] Allergy (Verified 09/16/19 11:24) Itching sucroferric oxyhydroxide [From Velphoro] Allergy (Verified 09/16/19 11:24) Sulfa (Sulfonamide Antibiotics) Allergy (Verified 09/16/19 11:24) Rash valsartan [From Diovan] Allergy (Verified 09/16/19 11:24) vancomycin Allergy (Verified 09/16/19 11:24) Rash cinacalcet [From Sensipar] Adverse Reaction (Verified 09/16/19 11:24) Rash metronidazole Adverse Reaction (Verified 09/16/19 11:24) reactivates gout Home Medications: Febuxostat [Uloric] 40 mg PO DAILY 09/12/12 [History] Levothyroxine Sodium 100 Mcg [Synthroid 100 Mcg] 150 mcg PO DAILY 09/12/12 [History] Clonidine HCl 0.1 mg [Catapres 0.1 MG] 0.1 mg PO TID 03/16/17 [History] Sevelamer Carbonate [Renvela] 4,000 mg PO UD 03/16/17 [History] Cholecalciferol (Vitamin D3) [Vitamin D3] 2,000 unit PO DAILY 10/17/18 [History] HydrALAzine HCL 25 MG TAB [Apresoline 25 MG TABLET] 25 mg PO BID 02/21/19 [History] Warfarin Sodium 2 mg [Coumadin 2 MG] 8 mg PO DAILY 02/21/19 [History] Calcitriol 0.25 mcg PO HS 09/16/19 [History] Hx Tetanus, Diphtheria Vaccination/Date Given: Yes (UP TO DATE) Hx Influenza Vaccination/Date Given: Yes Hx Pneumococcal Vaccination/Date Given: Yes Travel Risk - International Travel Have you traveled outside of the country in past 3 weeks: No - Coronavirus Screening Are you exhibiting any of the following symptoms?: No Close contact with a COVID-19 positive Pt in past 14-21 Days: No - Review of Systems Constitutional: No Symptoms Eyes: No Symptoms Ears, Nose, & Throat: No Symptoms Respiratory: Dyspnea (Chronic), No Cough, No Stridor, No Wheezing Cardiac: No Symptoms, No Chest Pain, No Syncope Abdominal/Gastrointestinal: No Symptoms Genitourinary Symptoms: No Symptoms Musculoskeletal: Other (Pain right hip right femur right knee) Skin: No Symptoms Neurological: No Symptoms Psychological: No Symptoms Endocrine: No Symptoms Hematologic/Lymphatic: No Symptoms Immunological/Allergic: No Symptoms All Other Systems: Reviewed and Negative - Past Medical History Pertinent Past Medical History: Yes Neurological History: No Pertinent History ENT History: No Pertinent History, Other Cardiac History: High Cholesterol, Hypertension Respiratory History: Asthma Endocrine Medical History: Hypothyroidism Musculoskeletal History: No Pertinent History GI Medical History: No Pertinent History History: Dialysis, Renal Disease Psycho-Social History: No Pertinent History Male Reproductive Disorders: No Pertinent History Other Medical History: GOUT. CELLULITIS IVON LOWER EXTREMETIES. GLOMERUSCLEROSIS. STAGE IV KIDNEY DISEASE. POLYCETHEMIA. ARTERIOSCLEROSIS. 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 CYST REMOVED FROM TAILBONE 1966. CYST REMOVED FROM HEAD-1980; 1994; 2005. LEFT KNEE REPLACEMENT 01/2002 nichol 2013 knee replaced. fistula placed - Social History Smoking Status: Never smoker Exposure to second hand smoke: No Drug Use: none Patient Lives Alone: No - Nursing Vital Signs Nursing Vital Signs: Initial Vital Signs Pulse Rate 87 09/16/19 11:08 Respiratory Rate 20 09/16/19 11:08 Blood Pressure 179/117 09/16/19 11:08 O2 Sat by Pulse Oximetry 93 L 09/16/19 11:08 Pain Scale Pain Intensity 9 - Physical Exam General Appearance: no apparent distress, alert, anxiety, obese Eyes, Ears, Nose, Throat Exam: normal ENT inspection, moist mucous membranes Neck Exam: normal inspection, non-tender, supple, full range of motion Cardiovascular/Respiratory Exam: chest non-tender, normal breath sounds, regular rate/rhythm, heart sounds normal, no respiratory distress Gastrointestinal/Abdominal Exam: non-tender Back Exam: normal inspection, normal range of motion, No CVA tenderness, No vertebral tenderness Hips Exam: right: normal inspection, normal range of motion, no evidence of injury, soft tissue tenderness Legs Exam: right leg: normal inspection, normal range of motion, no evidence of injury, soft tissue tenderness Knees Exam: right knee: normal inspection, normal range of motion, no evidence of injury, soft tissue tenderness Foot Exam: bilateral foot: non-tender, normal inspection, normal range of motion, no evidence of injury Neuro/Tendon Exam: normal sensation, normal motor functions, normal tendon functions Mental Status Exam: alert, oriented x 3, cooperative Skin Exam: normal color, warm, dry SpO2 Interpretation: normal O2 Delivery: Room Air - Course Nursing assessment & vital signs reviewed: Yes Ordered Tests: Active Orders 24 hr Category Date Time Status FEMUR Stat Exams 09/16/19 11:40 Completed HIP UNI (2V) INCL PEL IF DONE Stat Exams 09/16/19 11:40 Completed KNEE (3 VIEWS) Stat Exams 09/16/19 11:40 Completed VENOUS UNILAT/LIMITED EXTREMIT [US] Stat Exams 09/16/19 11:40 Taken PROTIME WITH INR Stat Lab 09/16/19 11:41 Completed Lab/Rad Data: Laboratory Results 09/16/19 Range/Units 11:41 PT 31.1 H (8.83-12.87) SECONDS INR 2.72 (0.8-3.0) - Progress Progress: pain not gone completely, re-examined Progress Note: 09/16/19 12:35 venous Doppler right lower extremity negative for DVT 09/16/19 12:38 X-ray of right hip reveals no acute fracture or dislocation X-ray of right femur reveals no evidence of any acute fracture or dislocation X-ray of right knee reveals no acute fracture or dislocation Counseled pt/family regarding: lab results, diagnosis, need for follow-up, rad results - Departure Departure Disposition: Home Clinical Impression: Right leg pain Condition: Stable Critical Care Time: No Referrals: BERNARDA TORRES [Primary Care Provider] - [facility]Ortho M-[id number] [phone] Additional Instructions: Take your medication as prescribed. Follow-up with your primary care physician for further evaluation and management of persistent right lower extremity pain. May also be evaluated at the [facility] orthopedic clinic if symptoms persist.
[2019-09-16 12:08] VITALS: BP 164/101
[2019-09-16 12:24] LABS: INR 2.72 (0.8-3.0); PROTIME 31.1 SECONDS (8.83-12.87)
--- NOTE | 2019-09-16 12:25 | XRAY ---
Indication: Pain 2 days. No known injury. Comparison: None 2 view right hip demonstrates mild osteopenia, degenerative joint space narrowing with subcortical cyst, and moderate diffuse scattered vascular calcifications. No other bony, articular, or soft tissue abnormalities.
--- NOTE | 2019-09-16 12:27 | XRAY ---
Indication: Pain 2 days. No known injury. Comparison: None 2 view right femur demonstrates mild osteopenia, hip/knee degenerative changes reported separately, and moderate diffuse scattered vascular calcifications. No other bony, articular, or soft tissue abnormalities.
--- NOTE | 2019-09-16 12:29 | XRAY ---
Indication: Pain 2 days. No known injury. Comparison: None 3 view right knee demonstrates mild osteopenia, mild medial joint space narrowing/spurring, lateral knee degenerative chondrocalcinosis, inferior patella spurring, tibial tuberosity heterotopic ossification, and moderate diffuse scattered vascular calcifications. No other bony, articular, or soft tissue abnormalities.
--- NOTE | 2019-09-16 12:48 | XRAY ---
Indication: Pain. Two-dimensional sonogram and color Doppler imaging of the major venous vessels of the right leg was performed. Comparison: None No thrombus seen in the examined deep venous vessels of the right leg including greater saphenous vein. Veins demonstrate normal compressibility. Venous waveforms are normal with and without augmentation. Impression: Right leg negative for DVT.
[2019-09-16 13:00] VITALS: PULSE 80; O2SAT 94
== END 2019-09-16 13:01 | disposition home or self-care (01) ==
LOC: ED 11:02
DX: M79.604 Pain in right leg (principal); I50.9 Heart failure, unspecified; J44.9 Chronic obstructive pulmonary disease, unspecified; Z79.01 Long term (current) use of anticoagulants; M25.561 Pain in right knee; M25.551 Pain in right hip; R22.41 Localized swelling, mass and lump, right lower limb; Z99.2 Dependence on renal dialysis; N28.9 Disorder of kidney and ureter, unspecified; Z96.652 Presence of left artificial knee joint
CPT/HCPCS: 36415; 73502; 73552; 73562; 85610; 93971; 99284

== ENCOUNTER 2020-10-12 03:05 | Emergency (ER) | payer MEDICARE ==
--- NOTE | 2020-10-12 03:34 | ERPHSYRPT ---
- History of Present Illness Time Seen by Provider: 10/12/20 03:13 Source: patient, family Exam Limitations: no limitations Physician History: 74 years old male with history of end-stage renal disease on dialysis, on Coumadin presented in the ER with bleeding from fistula site for the last 4 to 5 hours. Patient/ reports he was picking scabs from needle insertion sites and was off and on bleeding for few hours. He is worried about his elevated INR which happened in the past needing vitamin K injection. No fall or trauma to the fistula. No chest pain abdominal pain Timing/Duration: hour(s) (5), intermittent, gradual onset, improved Severity: mild Possible Causes: other Associated Symptoms: denies symptoms Allergies/Adverse Reactions: aspirin Allergy (Mild, Verified 10/12/20 03:33) Runny Nose NOSE BLEEDS furosemide [From Lasix] Allergy (Mild, Verified 10/12/20 03:33) Rash mycophenolate mofetil [From CellCept] Allergy (Mild, Verified 10/12/20 03:33) Blisters CAUSED GOUT, CELLULITIS, AND RISE IN B/P ANA MARIA Inhibitors Allergy (Verified 10/12/20 03:33) Beta-Blockers (Beta-Adrenergic Bloc Allergy (Verified 10/12/20 03:33) Swelling calcium [From PhosLo] Allergy (Verified 10/12/20 03:33) cephalexin monohydrate [From Keflex] Allergy (Verified 10/12/20 03:33) clarithromycin Allergy (Verified 10/12/20 03:33) epoetin beta [From Mircera] Allergy (Verified 10/12/20 03:33) ferric citrate [From Auryxia] Allergy (Verified 10/12/20 03:33) fluticasone [From Flonase] Allergy (Verified 10/12/20 03:33) indomethacin Allergy (Verified 10/12/20 03:33) promethazine [From Phenergan] Allergy (Verified 10/12/20 03:33) ranitidine Allergy (Verified 10/12/20 03:33) sevelamer HCl [From Renagel] Allergy (Verified 10/12/20 03:33) Itching sucroferric oxyhydroxide [From Velphoro] Allergy (Verified 10/12/20 03:33) Sulfa (Sulfonamide Antibiotics) Allergy (Verified 10/12/20 03:33) Rash valsartan [From Diovan] Allergy (Verified 10/12/20 03:33) vancomycin Allergy (Verified 10/12/20 03:33) Rash cinacalcet [From Sensipar] Adverse Reaction (Verified 10/12/20 03:33) Rash metronidazole Adverse Reaction (Verified 10/12/20 03:33) reactivates gout Home Medications: Febuxostat [Uloric] 40 mg PO DAILY 09/12/12 [History] Levothyroxine Sodium 100 Mcg [Synthroid 100 Mcg] 150 mcg PO DAILY 09/12/12 [History] Clonidine HCl 0.1 mg [Catapres 0.1 MG] 0.1 mg PO TID 03/16/17 [History] Sevelamer Carbonate [Renvela] 4,000 mg PO UD 03/16/17 [History] Cholecalciferol (Vitamin D3) [Vitamin D3] 2,000 unit PO DAILY 10/17/18 [History] HydrALAzine HCL 25 MG TAB [Apresoline 25 MG TABLET] 25 mg PO BID 02/21/19 [History] Warfarin Sodium 2 mg [Coumadin 2 MG] 8 mg PO DAILY 02/21/19 [History] Calcitriol 0.25 mcg PO HS 09/16/19 [History] Hx Tetanus, Diphtheria Vaccination/Date Given: Yes (UP TO DATE) Hx Influenza Vaccination/Date Given: Yes Hx Pneumococcal Vaccination/Date Given: Yes - Review of Systems Constitutional: No Symptoms Eyes: No Symptoms Respiratory: No Symptoms Cardiac: No Symptoms Abdominal/Gastrointestinal: No Symptoms Musculoskeletal: No Symptoms Skin: Rash, Skin Lesions Neurological: No Symptoms Endocrine: No Symptoms Immunological/Allergic: No Symptoms - Past Medical History Pertinent Past Medical History: Yes Neurological History: No Pertinent History ENT History: No Pertinent History, Other Cardiac History: High Cholesterol, Hypertension Respiratory History: Asthma Endocrine Medical History: Hypothyroidism Musculoskeletal History: No Pertinent History GI Medical History: No Pertinent History History: Dialysis, Renal Disease Psycho-Social History: No Pertinent History Male Reproductive Disorders: No Pertinent History Other Medical History: GOUT. CELLULITIS IVON LOWER EXTREMETIES. GLOMERUSCLEROSIS. STAGE IV KIDNEY DISEASE. POLYCETHEMIA. ARTERIOSCLEROSIS. 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 CYST REMOVED FROM TAILBONE 1966. CYST REMOVED FROM HEAD-1980; 1994; 2005. LEFT KNEE REPLACEMENT 01/2002 nichol 2013 knee replaced. fistula placed - Social History Smoking Status: Never smoker Exposure to second hand smoke: No Drug Use: none Patient Lives Alone: No - Nursing Vital Signs Nursing Vital Signs: Initial Vital Signs Temperature 98.4 F 10/12/20 03:34 Pulse Rate 71 10/12/20 03:34 Respiratory Rate 18 10/12/20 03:34 Blood Pressure 119/71 10/12/20 03:34 O2 Sat by Pulse Oximetry 98 10/12/20 03:34 Pain Scale Pain Intensity 7 - Physical Exam General Appearance: no apparent distress, alert Eye Exam: PERRL/EOMI Ears, Nose, Throat Exam: normal ENT inspection Neck Exam: full range of motion Respiratory Exam: normal breath sounds, lungs clear Cardiovascular Exam: regular rate/rhythm, normal heart sounds Extremity Exam: other (No oozing or spurting from fistula left upper extremity.) Neurologic Exam: alert, oriented x 3, cooperative Skin Exam: normal color SpO2 Interpretation: normal SpO2: 95 O2 Delivery: Room Air Ordered Tests: Active Orders 24 hr Category Date Time Status PT INR [PROTIME WITH INR] Stat Lab 10/12/20 03:31 Completed Lab/Rad Data: Laboratory Results 10/12/20 Range/Units 03:31 PT 57.7 H (9.4-12.5) SECONDS INR 4.89 H (0.8-3.0) - Progress Progress Note: 10/12/20 04:36 Patient is not actively bleeding although INR is supratherapeutic. I would give him oral vitamin K and recommended outpatient follow-up with his Coumadin doctor for adjustment of medication dose. - Departure Departure Disposition: Home Clinical Impression: Supratherapeutic INR Complication of AV dialysis fistula Qualifiers: Encounter type: initial encounter Qualified Code(s): T82.9XXA - Unspecified complication of cardiac and vascular prosthetic device, implant and graft, initial encounter Condition: Stable Critical Care Time: No Referrals: BERNARDA TORRES [Primary Care Provider] - (Call in the morning for reevaluation) Additional Instructions: Do not do picking of scabs and fistula needle insertion sites. Follow-up with your doctor for reevaluation. Return to ER if again have bleeding.
[2020-10-12 04:22] LABS: INR 4.89 (0.8-3.0); PROTIME 57.7 SECONDS (9.4-12.5)
[2020-10-12] MEDS ORDERED: Vitamin K 10 MG/ML PO ONE (04:36)
[2020-10-12] MEDS ORDERED: Vitamin K 10 MG/ML ONE (04:37)
[2020-10-12 05:06] VITALS: BP 118/78; PULSE 61; O2SAT 96
== END 2020-10-12 05:11 | disposition home or self-care (01) ==
LOC: ED 03:05
DX: R79.1 Abnormal coagulation profile (principal); T82.9XXA Unspecified complication of cardiac and vascular prosthetic device, implant and graft, initial encounter; I12.0 Hypertensive chronic kidney disease with stage 5 chronic kidney disease or end stage renal disease; N18.6 End stage renal disease; Z99.2 Dependence on renal dialysis; Z79.01 Long term (current) use of anticoagulants; E78.00 Pure hypercholesterolemia, unspecified; E03.9 Hypothyroidism, unspecified; J45.909 Unspecified asthma, uncomplicated
CPT/HCPCS: 36415; 85610; 99283; J3430

== ENCOUNTER 2021-04-19 12:19 | Emergency (ER) | payer MEDICARE ==
[2021-04-19] MEDS ORDERED: HYDROCODONE-ACETAMIN 10-325 MG PO ONE (12:31)
--- NOTE | 2021-04-19 12:51 | ERPHSYRPT ---
- History of Present Illness Source: patient Exam Limitations: no limitations Patient Subjective Stated Complaint: Pt states "I fell backwards off a stool and hit my left side on a chair." Triage Nursing Assessment: Pt presented alert and oriented X 3, skin pwd Pt ambulates with a slow gait, pt will guard his left side, no bruising noted. Physician History: 75 yo wm states that he fell off a stool at a pancake breakfast on 04/17 injuring his L lateral thorax. He denies LOC/head injury/C,T, or L-spine pain/UE pain/Hip-LE pain. Pt is on dialysis M/W/Fr and will obtain dialysis after ER visit. Occurred: days ago (2 days ago) Reason for Fall: lost balance (Fell off stool ) Injuries/Pain Location: chest Loss of Consciousness: no loss of consciousness Quality: aching Severity of Pain-Max: moderate Severity of Pain-Current: moderate Modifying Factors: Improves With: movement Associated Symptoms (Fall): No abdominal pain, No back pain, No confusion, No chest pain, No dizziness, No extremity injury, No headache, No lightheadedness, No muscle spasms, No nausea, No neck pain, No ringing in ears, No seizures, No shortness of breath, No slurred speech, No trouble walking, No vomiting, No vision changes Allergies/Adverse Reactions: aspirin Allergy (Mild, Verified 10/12/20 03:33) Runny Nose NOSE BLEEDS furosemide [From Lasix] Allergy (Mild, Verified 10/12/20 03:33) Rash mycophenolate mofetil [From CellCept] Allergy (Mild, Verified 10/12/20 03:33) Blisters CAUSED GOUT, CELLULITIS, AND RISE IN B/P ANA MARIA Inhibitors Allergy (Verified 10/12/20 03:33) Beta-Blockers (Beta-Adrenergic Bloc Allergy (Verified 10/12/20 03:33) Swelling calcium [From PhosLo] Allergy (Verified 10/12/20 03:33) cephalexin monohydrate [From Keflex] Allergy (Verified 10/12/20 03:33) clarithromycin Allergy (Verified 10/12/20 03:33) epoetin beta [From Mircera] Allergy (Verified 10/12/20 03:33) ferric citrate [From Auryxia] Allergy (Verified 10/12/20 03:33) fluticasone [From Flonase] Allergy (Verified 10/12/20 03:33) indomethacin Allergy (Verified 10/12/20 03:33) promethazine [From Phenergan] Allergy (Verified 10/12/20 03:33) ranitidine Allergy (Verified 10/12/20 03:33) sevelamer HCl [From Renagel] Allergy (Verified 10/12/20 03:33) Itching sucroferric oxyhydroxide [From Velphoro] Allergy (Verified 10/12/20 03:33) Sulfa (Sulfonamide Antibiotics) Allergy (Verified 10/12/20 03:33) Rash valsartan [From Diovan] Allergy (Verified 10/12/20 03:33) vancomycin Allergy (Verified 10/12/20 03:33) Rash cinacalcet [From Sensipar] Adverse Reaction (Verified 10/12/20 03:33) Rash metronidazole Adverse Reaction (Verified 10/12/20 03:33) reactivates gout Home Medications: Febuxostat [Uloric] 40 mg PO DAILY 09/12/12 [History] Levothyroxine Sodium 100 Mcg [Synthroid 100 Mcg] 150 mcg PO DAILY 09/12/12 [History] Clonidine HCl 0.1 mg [Catapres 0.1 MG] 0.1 mg PO TID 03/16/17 [History] Sevelamer Carbonate [Renvela] 4,000 mg PO UD 03/16/17 [History] Cholecalciferol (Vitamin D3) [Vitamin D3] 2,000 unit PO DAILY 10/17/18 [History] HydrALAzine HCL 25 MG TAB [Apresoline 25 MG TABLET] 25 mg PO BID 02/21/19 [History] Warfarin Sodium 2 mg [Coumadin 2 MG] 8 mg PO DAILY 02/21/19 [History] calcitrioL [Calcitriol] 0.25 mcg PO HS 09/16/19 [History] Hx Tetanus, Diphtheria Vaccination/Date Given: Yes (UP TO DATE) Hx Influenza Vaccination/Date Given: Yes Hx Pneumococcal Vaccination/Date Given: Yes Immunizations Up to Date: Yes Travel Risk - International Travel Have you traveled outside of the country in past 3 weeks: No - Coronavirus Screening Are you exhibiting any of the following symptoms?: No Close contact with a COVID-19 positive Pt in past 14-21 Days: No - Vaccine Status Have you recieved a Covid-19 vaccination: Yes [employer]: Moderna - Vaccination Dates Date of 2cond Vaccination (if applicable): 07/17 - Review of Systems Constitutional: No Symptoms Eyes: No Symptoms Ears, Nose, & Throat: No Symptoms Respiratory: No Symptoms Cardiac: No Symptoms Abdominal/Gastrointestinal: No Symptoms Genitourinary Symptoms: No Symptoms Musculoskeletal: No Symptoms Skin: No Symptoms Neurological: No Symptoms Psychological: No Symptoms Endocrine: No Symptoms Hematologic/Lymphatic: No Symptoms Immunological/Allergic: No Symptoms - Past Medical History Pertinent Past Medical History: Yes Neurological History: No Pertinent History ENT History: No Pertinent History, Other Cardiac History: High Cholesterol, Hypertension Respiratory History: Asthma Endocrine Medical History: Hypothyroidism Musculoskeletal History: No Pertinent History GI Medical History: No Pertinent History History: Dialysis, Renal Disease Psycho-Social History: No Pertinent History Male Reproductive Disorders: No Pertinent History Other Medical History: GOUT. CELLULITIS IVON LOWER EXTREMETIES. GLOMERUSCLEROSIS. STAGE IV KIDNEY DISEASE. POLYCETHEMIA. ARTERIOSCLEROSIS. 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 CYST REMOVED FROM TAILBONE 1966. CYST REMOVED FROM HEAD-1980; 1994; 2005. LEFT KNEE REPLACEMENT 01/2002 nichol 2013 knee replaced. fistula placed - Social History Smoking Status: Never smoker Exposure to second hand smoke: No Drug Use: none Patient Lives Alone: No Significant Family History: no pertinent family hx - Nursing Vital Signs Nursing Vital Signs: Initial Vital Signs Temperature 97.4 F 04/19/21 12:19 Pulse Rate 76 04/19/21 12:19 Respiratory Rate 22 04/19/21 12:19 Blood Pressure 170/100 04/19/21 12:19 O2 Sat by Pulse Oximetry 95 04/19/21 12:19 Pain Scale Pain Intensity 0 Hypertensive - Piper Coma Score Best Eye Response (Piper): (4) open spontaneously Best Verbal Response (Piper): (5) oriented Best Motor Response (Piper): (6) obeys commands [employer] Total: 15 - Physical Exam General Appearance: no apparent distress Head Injury: no evidence of injury Eye Exam: PERRL/EOMI, eyes nml inspection ENT Exam: airway nml, decreased hearing (Pt has chronic deafness), No evidence of ENT injury, No clear fluid (ears), No clear fluid (nose), No midface instability Neck Exam: supple, trachea midline, full range of motion (C-spine NTTP) Respiratory/Chest Exam: chest tenderness (L lateral thorax TTP), normal breath sounds, No respiratory distress Cardiovascular Exam: normal heart sounds, regular rate/rhythm, normal peripheral pulses, No murmur Gastrointestinal Exam: soft, tenderness (Mild LUQ TTP) Extremity Exam: normal inspection, normal range of motion, pelvis stable Peripheral Pulses: carotid (R): 2+, carotid (L): 2+ Neurologic Exam: alert, oriented x 3, cooperative, access services librarian II-XII nml as tested, normal mood/affect, nml cerebellar function, nml station & gait, sensation nml, No motor deficits, No sensory deficit Skin Exam: normal color, warm, dry SpO2 Interpretation: normal SpO2: 95 O2 Delivery: Room Air - Course Nursing assessment & vital signs reviewed: Yes - CT Exams Chest CT Interpretation: Discussed w/radiologist (CT thorax-No rib fx's/pulmonary edema and effusions) Abdomen/Pelvis CT Interpretation: Discussed w/radiologist (Nothing acute) Ordered Tests: Active Orders 24 hr Category Date Time Status ABDOMEN AND PELVIS W/0 CONTRAS [CT] Stat Exams 04/19/21 12:31 Completed CHEST WITHOUT CONTRAST [CT] Stat Exams 04/19/21 12:32 Completed Medication Summary Discontinued Medications Generic Name Dose Route Start Last Admin Trade Name Db PRN Reason Stop Dose Admin Hydrocodone Bitart/Acetaminophen 1 tablet 04/19/21 12:31 04/19/21 13:01 Hydrocodone/Acetamin 10-325 Mg Tablet PO 04/19/21 12:32 1 tablet STAT ONE Administration Ketorolac Tromethamine 15 mg 04/19/21 13:27 04/19/21 14:01 Ketorolac Tromethamine 30 Mg/Ml Inj IM 04/19/21 13:28 15 mg STAT ONE Administration Ketorolac Tromethamine Confirm 04/19/21 13:48 Ketorolac Tromethamine 30 Mg/Ml Inj Administered 04/19/21 13:49 Dose 30 mg .ROUTE .STK-MED ONE - Progress Progress Note: 04/19/21 13:28 Norco10 po x1 15mg IM Toradol 04/19/21 19:10 Pt discharged to dialysis [facility]. Pain is easily reproduced w palpation and when pt moves. Counseled pt/family regarding: diagnosis, need for follow-up, rad results - Departure Departure Disposition: Home Clinical Impression: Chest wall contusion Condition: Stable Critical Care Time: No Referrals: BERNARDA TORRES [Primary Care Provider] - Follow up/PCP as directed Instructions: Contusion (DC), Bruised Rib (DC) Additional Instructions: Dialysis LIZBET Pain meds as needed Return to ER for increasing pain, shortness of breath, or temperature greater than 100.5 Prescriptions: Hydrocodone/Acetaminophen [Hydrocodone-Acetamin 10-325 mg] 1 each PO Q4-6HPRN PRN #7 tablet MDD 4 tabs PRN Reason: Pain
--- NOTE | 2021-04-19 13:09 | XRAY ---
Indication: Left rib pain following fall 2 days ago. Multiple contiguous axial images obtained through the chest without contrast. Comparison: October 17, 2018. Lungs demonstrates new mild diffuse pulmonary edema with moderate right effusion and small left effusion and bibasilar compressive atelectasis. Heart remains enlarged again with scattered coronary calcifications. Aorta remains moderately arteriosclerotic without aneurysm. Stable right perihilar calcified nodes. No pathologic mediastinal lymphadenopathy. Bony thorax again demonstrates mild osteopenia, mild degenerative changes throughout the spine, and T10 vertebral hemangioma. New finding old left 2 and old right 3-7 rib fractures. Again bilateral gynecomastia. CT abdomen/pelvis reported separately. Impression: 1. Cardiomegaly, pulmonary edema, and bilateral effusions favoring worsening cardiac decompensation/CHF. 2. New finding old bilateral rib fractures. 3. Again arteriosclerotic disease, gynecomastia, chronic bony findings, and old granulomatous disease.
--- NOTE | 2021-04-19 13:15 | XRAY ---
Indication: Left rib pain following fall 2 days ago. Multiple contiguous axial images obtained through the abdomen and pelvis without contrast. Comparison: None. CT chest reported separately. Study is degraded by mild respiration artifact throughout. Noncontrasted stomach and bowel loops appear nonobstructed. No free fluid/air. Both kidneys are markedly atrophic with multiple tiny bilateral renal cysts. No hydronephrosis or hydroureter. Tiny splenic calcified granulomas. Remaining liver, gallbladder, pancreas, spleen, adrenal glands, kidneys, ureters, and bladder are unremarkable for noncontrast exam. Heavy diffuse scattered vascular calcifications without AAA. IVC filter in situ. Osseous structures intact with osteopenia, mild/moderate multilevel degenerative spondylosis, mild/moderate levoscoliosis centered at L3, and mild/moderate bilateral hip degenerative arthropathy. Small bilateral fatty inguinal hernias. Impression: 1. Respiration artifact. 2. Bilateral renal atrophy with tiny cysts favoring chronic kidney disease. 3. Extensive arteriosclerotic disease, chronic bony findings, and bilateral fatty inguinal hernias. 4. Remaining CT abdomen/pelvis without contrast exam is negative.
[2021-04-19] MEDS ORDERED: TORAdol 30 mg Injection IM ONE (13:27)
[2021-04-19 13:44] VITALS: BP 161/93; PULSE 74
[2021-04-19] MEDS ORDERED: TORAdol 30 mg Injection ONE (13:48)
[2021-04-19 19:13] VITALS: O2SAT 95
== END 2021-04-19 14:01 | disposition home or self-care (01) ==
LOC: ED 12:19
DX: S20.212A Contusion of left front wall of thorax, initial encounter (principal); W07.XXXA Fall from chair, initial encounter; I12.9 Hypertensive chronic kidney disease with stage 1 through stage 4 chronic kidney disease, or unspecified chronic kidney disease; N18.4 Chronic kidney disease, stage 4 (severe); Z99.2 Dependence on renal dialysis; E78.5 Hyperlipidemia, unspecified; Z79.01 Long term (current) use of anticoagulants; Z79.891 Long term (current) use of opiate analgesic; Z79.899 Other long term (current) drug therapy
CPT/HCPCS: 71250; 74176; 96372; 99284; J1885; A9270-GY

== ENCOUNTER 2021-04-25 03:19 | Emergency (ER) | payer MEDICARE ==
[2021-04-25 03:54] LABS: Absolute Neutrophil Ct (ANC) 7.95 (1.4-6.9); Basophil (Absolute #) 0.04 (0-0.4); Eosinophil % 7.5 % (0.00-5.0); Eosinophil (Absolute #) 0.78 (0-0.5); Hematocrit 35.4 % (42-50); Hemoglobin 11.3 gm/dl (12.5-18.0); Lymphocyte (Absolute #) 0.92 (1.0-4.6); Lymphocytes % 8.8 % (24.0-44.0); Mean Cell Volume 100.3 fl (78-100); Mean Corpuscular Hgb Concent. 31.9 g/dl (32-36); Mean Platelet Volume 11.1 fl (7.5-11.0); Monocyte (Absolute #) 0.71 (0.0-1.3); Monocytes % 6.8 % (0.0-12.0); Neutrophil % 76.5 % (36.0-66.0); Platelet Count 204 K/mm3 (150-450); Red Blood Count 3.53 M/mm3 (4.1-5.6); Red Cell Distribution Width 14.3 % (11.5-14.0); White Blood Count 10.4 K/mm3 (4.0-10.5)
[2021-04-25 03:57] LABS: PTT 72.1 SECONDS (25.1-36.5)
[2021-04-25 04:00] LABS: ALBUMIN 4.2 g/dL (3.5-5.0); BILIRUBIN,TOTAL 0.6 mg/dL (0.2-1.3); Calcium 8.8 mg/dL (8.4-10.2); Creatinine 1 9.82 mg/dL (0.66-1.25); EST GLOMERULAR FILTRATION RATE 5.6 ML/MIN; Potassium 4.6 mmol/L (3.5-5.1); Total Protein 7.6 g/dL (6.3-8.2)
[2021-04-25] MEDS ORDERED: EMLA Cream 5 GM TP ONE (04:02)
[2021-04-25 04:14] LABS: PROTIME 139.3 SECONDS (9.4-12.5)
[2021-04-25 04:15] LABS: INR 11.81 (0.8-3.0)
[2021-04-25] MEDS ORDERED: Vitamin K 10 MG/ML SQ ONE (04:19)
[2021-04-25] MEDS ORDERED: Vitamin K 10 MG/ML ONE (04:22)
--- NOTE | 2021-04-25 06:02 | ERPHSYRPT ---
- History of Present Illness Time Seen by Provider: 04/25/21 03:25 Source: patient Exam Limitations: no limitations Patient Subjective Stated Complaint: pt states he has been bleeding from his dialysis fistula since monday after his dialysis. Triage Nursing Assessment: pt alert and oriented, answered questions approp. pt ambulatory with steady gait noted. respirations nonlabored. skin pink warm and dry. fistula to lt forearm with thrill and bruit noted. slow bleeding noted from distal fistula, pt states from needle insertion site from dialysis on monday. Physician History: Patient is a 75-year-old white male who is on a Monday dialysis schedule who presents with bleeding from his fistula for several hours. He also suffered a skin tear when removing some tape and has had some bleeding from the re as well. He is on Coumadin 5 mg daily the last check 2 weeks ago and was 2.9. Timing/Duration: today Severity: mild Associated Symptoms: denies symptoms Allergies/Adverse Reactions: aspirin Allergy (Mild, Verified 04/25/21 05:34) Runny Nose NOSE BLEEDS furosemide [From Lasix] Allergy (Mild, Verified 04/25/21 05:34) Rash mycophenolate mofetil [From CellCept] Allergy (Mild, Verified 04/25/21 05:34) Blisters CAUSED GOUT, CELLULITIS, AND RISE IN B/P ANA MARIA Inhibitors Allergy (Verified 04/25/21 05:34) Beta-Blockers (Beta-Adrenergic Bloc Allergy (Verified 04/25/21 05:34) Swelling calcium [From PhosLo] Allergy (Verified 04/25/21 05:34) cephalexin monohydrate [From Keflex] Allergy (Verified 04/25/21 05:34) clarithromycin Allergy (Verified 04/25/21 05:34) epoetin beta [From Mircera] Allergy (Verified 04/25/21 05:34) ferric citrate [From Auryxia] Allergy (Verified 04/25/21 05:34) fluticasone [From Flonase] Allergy (Verified 04/25/21 05:34) indomethacin Allergy (Verified 04/25/21 05:34) promethazine [From Phenergan] Allergy (Verified 04/25/21 05:34) ranitidine Allergy (Verified 04/25/21 05:34) sevelamer HCl [From Renagel] Allergy (Verified 04/25/21 05:34) Itching sucroferric oxyhydroxide [From Velphoro] Allergy (Verified 04/25/21 05:34) Sulfa (Sulfonamide Antibiotics) Allergy (Verified 04/25/21 05:34) Rash valsartan [From Diovan] Allergy (Verified 04/25/21 05:34) vancomycin Allergy (Verified 04/25/21 05:34) Rash cinacalcet [From Sensipar] Adverse Reaction (Verified 04/25/21 05:34) Rash metronidazole Adverse Reaction (Verified 04/25/21 05:34) reactivates gout Home Medications: Febuxostat [Uloric] 40 mg PO DAILY 09/12/12 [History] Levothyroxine Sodium 100 Mcg [Synthroid 100 Mcg] 300 mcg PO DAILY 09/12/12 [History] Sevelamer Carbonate [Renvela] 4,000 mg PO UD 03/16/17 [History] Cholecalciferol (Vitamin D3) [Vitamin D3] 4,000 unit PO DAILY 10/17/18 [History] Warfarin Sodium 2 mg [Coumadin 2 MG] 5 mg PO DAILY 02/21/19 [History] calcitrioL [Calcitriol] 0.5 mcg PO UD 09/16/19 [History] Hx Tetanus, Diphtheria Vaccination/Date Given: Yes (UP TO DATE) Hx Influenza Vaccination/Date Given: Yes Hx Pneumococcal Vaccination/Date Given: Yes Immunizations Up to Date: Yes Travel Risk - International Travel Have you traveled outside of the country in past 3 weeks: No - Coronavirus Screening Are you exhibiting any of the following symptoms?: No Close contact with a COVID-19 positive Pt in past 14-21 Days: No - Vaccine Status Have you recieved a Covid-19 vaccination: Yes [employer]: Moderna - Vaccination Dates Date of 2cond Vaccination (if applicable): 07/17 Comment: booster done - Review of Systems Constitutional: No Fever, No Chills Eyes: No Symptoms Ears, Nose, & Throat: No Symptoms, Hearing Changes Respiratory: No Cough, No Dyspnea Cardiac: No Chest Pain, No Edema, No Syncope Abdominal/Gastrointestinal: No Abdominal Pain, No Nausea, No Vomiting, No Diarrhea Genitourinary Symptoms: No Dysuria Musculoskeletal: No Back Pain, No Neck Pain Skin: No Rash Neurological: No Dizziness, No Focal Weakness, No Sensory Changes Psychological: No Symptoms Endocrine: No Symptoms All Other Systems: Reviewed and Negative - Past Medical History Pertinent Past Medical History: Yes Neurological History: No Pertinent History ENT History: No Pertinent History, Other Cardiac History: High Cholesterol, Hypertension Respiratory History: Asthma Endocrine Medical History: Hypothyroidism Musculoskeletal History: No Pertinent History GI Medical History: No Pertinent History History: Dialysis, Renal Disease Psycho-Social History: No Pertinent History Male Reproductive Disorders: No Pertinent History Other Medical History: GOUT. CELLULITIS IVON LOWER EXTREMETIES. GLOMERUSCLEROSIS. STAGE IV KIDNEY DISEASE. POLYCETHEMIA. ARTERIOSCLEROSIS. 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 CYST REMOVED FROM TAILBONE 1966. CYST REMOVED FROM HEAD-1980; 1994; 2005. LEFT KNEE REPLACEMENT 01/2002 nichol 2013 knee replaced. fistula placed - Social History Smoking Status: Never smoker Exposure to second hand smoke: No Drug Use: none Patient Lives Alone: No Significant Family History: no pertinent family hx - Nursing Vital Signs Nursing Vital Signs: Initial Vital Signs Temperature 97.0 F 04/25/21 03:20 Pulse Rate 79 04/25/21 03:20 Respiratory Rate 18 04/25/21 03:20 Blood Pressure 155/99 04/25/21 03:20 O2 Sat by Pulse Oximetry 94 L 04/25/21 03:20 Pain Scale Pain Intensity 7 - Physical Exam General Appearance: mild distress, alert Eye Exam: PERRL/EOMI, eyes nml inspection Ears, Nose, Throat Exam: normal ENT inspection, TMs normal, pharynx normal, moist mucous membranes Neck Exam: normal inspection, non-tender, supple, full range of motion Respiratory Exam: normal breath sounds, lungs clear, No respiratory distress Cardiovascular Exam: regular rate/rhythm, normal heart sounds, normal peripheral pulses Gastrointestinal/Abdomen Exam: soft, normal bowel sounds, No tenderness, No mass Back Exam: normal inspection, normal range of motion, No CVA tenderness, No vertebral tenderness Extremity Exam: normal inspection, normal range of motion, pelvis stable Neurologic Exam: alert, oriented x 3, cooperative, normal mood/affect, nml cerebellar function, nml station & gait, sensation nml, No motor deficits Skin Exam: normal color, warm, dry, laceration (Bleeding from a puncture wound on the dialysis fistula and a skin tear on the left forearm.), No rash Lymphatic Exam: No adenopathy SpO2: 96 - Course Nursing assessment & vital signs reviewed: Yes Ordered Tests: Active Orders 24 hr Category Date Time Status CBC W DIFF Stat Lab 04/25/21 03:42 Completed CMP Stat Lab 04/25/21 03:42 Completed PROTIME WITH INR Stat Lab 04/25/21 03:42 Completed PTT Stat Lab 04/25/21 03:42 Completed Medication Summary Discontinued Medications Generic Name Dose Route Start Last Admin Trade Name Freq PRN Reason Stop Dose Admin Lidocaine/Prilocaine Confirm 04/25/21 04:02 Lidocaine/Prilocaine 5 Gm 5 Gm Tube Administered 04/25/21 04:03 Dose 5 gm TP .STK-MED ONE Phytonadione 10 mg 04/25/21 04:19 04/25/21 04:26 Phytonadione 10 Mg/Ml Amp SQ 04/25/21 04:20 10 mg STAT ONE Administration Phytonadione Confirm 04/25/21 04:22 Phytonadione 10 Mg/Ml Amp Administered 04/25/21 04:23 Dose 10 mg .ROUTE .STK-MED ONE Lab/Rad Data: Laboratory Result Diagrams 04/25/21 03:42 04/25/21 03:42 Laboratory Results 04/25/21 04/25/21 04/25/21 Range/Units 03:42 03:42 03:42 WBC 10.4 (4.0-10.5) K/mm3 RBC 3.53 L (4.1-5.6) M/mm3 Hgb 11.3 L (12.5-18.0) gm/dl Hct 35.4 L (42-50) % MCV 100.3 H (78-100) fl MCH 32.0 (26-32) pg MCHC 31.9 L (32-36) g/dl RDW 14.3 H (11.5-14.0) % Plt Count 204 (150-450) K/mm3 MPV 11.1 H (7.5-11.0) fl Gran % 76.5 H (36.0-66.0) % Eos # (Auto) 0.78 H (0-0.5) Absolute Lymphs (auto) 0.92 L (1.0-4.6) Absolute Monos (auto) 0.71 (0.0-1.3) Lymphocytes % 8.8 L (24.0-44.0) % Monocytes % 6.8 (0.0-12.0) % Eosinophils % 7.5 H (0.00-5.0) % Basophils % 0.4 (0.0-0.4) % Absolute Granulocytes 7.95 H (1.4-6.9) Basophils # 0.04 (0-0.4) PT 139.3 H (9.4-12.5) SECONDS INR 11.81 H* (0.8-3.0) APTT 72.1 H (25.1-36.5) SECONDS Sodium 136 L (137-145) mmol/L Potassium 4.6 (3.5-5.1) mmol/L Chloride 91 L (98-107) mmol/L Carbon Dioxide 30 (22-30) mmol/L Anion Gap 20.0 H (5-15) MEQ/L BUN 69 H (9-20) mg/dL Creatinine 9.82 H (0.66-1.25) mg/dL Estimated GFR 5.6 ML/MIN Glucose 90 (74-106) mg/dL Calcium 8.8 (8.4-10.2) mg/dL Total Bilirubin 0.60 (0.2-1.3) mg/dL AST 16 L (17-59) U/L ALT 12 (0-50) U/L Alkaline Phosphatase 84 (38-126) U/L Serum Total Protein 7.6 (6.3-8.2) g/dL Albumin 4.2 (3.5-5.0) g/dL - Progress Progress: improved - Departure Departure Disposition: Home Clinical Impression: Coumadin toxicity, Complication of AV dialysis fistula, Supratherapeutic INR Condition: Stable Critical Care Time: No Referrals: BERNARDA TORRES [Primary Care Provider] - Follow up/PCP as directed Additional Instructions: Patient was instructed to hold his Coumadin and till Monday morning and get an INR
[2021-04-25 06:05] VITALS: BP 131/77
[2021-04-25 06:07] VITALS: PULSE 71; O2SAT 96
== END 2021-04-25 06:27 | disposition home or self-care (01) ==
LOC: ED 03:19
DX: T82.838A Hemorrhage due to vascular prosthetic devices, implants and grafts, initial encounter (principal); T45.515A Adverse effect of anticoagulants, initial encounter; Z99.2 Dependence on renal dialysis; Z79.01 Long term (current) use of anticoagulants; E78.5 Hyperlipidemia, unspecified; I12.9 Hypertensive chronic kidney disease with stage 1 through stage 4 chronic kidney disease, or unspecified chronic kidney disease; N18.4 Chronic kidney disease, stage 4 (severe); H90.3 Sensorineural hearing loss, bilateral
CPT/HCPCS: 36415; 80053; 85025; 85610; 85730; 96372; 99283; J3430; A9270-GY

== ENCOUNTER 2021-08-06 12:02 | Emergency (ER) | payer MEDICARE ==
[2021-08-06] MEDS ORDERED: Sodium Chloride 0.9% 1000 ML 1,000 ML IV SCH (12:30)
--- NOTE | 2021-08-06 12:30 | ERPHSYRPT ---
- History of Present Illness Time Seen by Provider: 08/06/21 12:15 Historian: patient, EMS, long term records Exam Limitations: other (Patient is deaf) Physician History: This is a 75-year-old [facility] home resident who has renal failure on Monday hemodialysis who presents with suprapubic abdominal pain scrotal swelling and abnormal, bloody penile discharge. Patient states he has not made urine in the last 3 weeks. Patient is on Coumadin. He has an elevated cholesterol, hypertension, asthma and hypothyroidism. Patient is scheduled for dialysis today. 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 Patient prefers to [facility] over [facility] if transfer is necessary. Patient denies shortness of breath. He denies chest pain. He also denies fever. Activities at Onset: none Quality: aching (Suprapubic), pressure (Suprapubic) Abdominal Pain Onset Location: suprapubic Pain Radiation: no radiation Severity of Pain-Max: mild (Moderate) Severity of Pain-Current: mild (To moderate) Modifying Factors: Improves With: nothing Associated Symptoms: testicular pain (Bilateral and scrotal) Previous symptoms: no prior history Allergies/Adverse Reactions: aspirin Allergy (Mild, Verified 04/25/21 05:34) Runny Nose NOSE BLEEDS furosemide [From Lasix] Allergy (Mild, Verified 04/25/21 05:34) Rash mycophenolate mofetil [From CellCept] Allergy (Mild, Verified 04/25/21 05:34) Blisters CAUSED GOUT, CELLULITIS, AND RISE IN B/P ANA MARIA Inhibitors Allergy (Verified 04/25/21 05:34) Beta-Blockers (Beta-Adrenergic Bloc Allergy (Verified 04/25/21 05:34) Swelling calcium [From PhosLo] Allergy (Verified 04/25/21 05:34) cephalexin monohydrate [From Keflex] Allergy (Verified 04/25/21 05:34) clarithromycin Allergy (Verified 04/25/21 05:34) epoetin beta [From Mircera] Allergy (Verified 04/25/21 05:34) ferric citrate [From Auryxia] Allergy (Verified 04/25/21 05:34) fluticasone [From Flonase] Allergy (Verified 04/25/21 05:34) indomethacin Allergy (Verified 04/25/21 05:34) promethazine [From Phenergan] Allergy (Verified 04/25/21 05:34) ranitidine Allergy (Verified 04/25/21 05:34) sevelamer HCl [From Renagel] Allergy (Verified 04/25/21 05:34) Itching sucroferric oxyhydroxide [From Velphoro] Allergy (Verified 04/25/21 05:34) Sulfa (Sulfonamide Antibiotics) Allergy (Verified 04/25/21 05:34) Rash valsartan [From Diovan] Allergy (Verified 04/25/21 05:34) vancomycin Allergy (Verified 04/25/21 05:34) Rash cinacalcet [From Sensipar] Adverse Reaction (Verified 04/25/21 05:34) Rash metronidazole Adverse Reaction (Verified 04/25/21 05:34) reactivates gout Home Medications: Febuxostat [Uloric] 40 mg PO DAILY 09/12/12 [History] Levothyroxine Sodium 100 Mcg [Synthroid 100 Mcg] 300 mcg PO DAILY 09/12/12 [History] Cholecalciferol (Vitamin D3) [Vitamin D3] 4,000 unit PO DAILY 10/17/18 [History] Warfarin Sodium 2 mg [Coumadin 2 MG] 5 mg PO DAILY 02/21/19 [History] calcitrioL [Calcitriol] 0.5 mcg PO DAILY 09/16/19 [History] Sevelamer Carbonate 3,200 mg PO DAILY PRN PRN 05/10/21 [History] Hx Tetanus, Diphtheria Vaccination/Date Given: Yes (UP TO DATE) Hx Influenza Vaccination/Date Given: Yes Hx Pneumococcal Vaccination/Date Given: Yes Travel Risk - International Travel Have you traveled outside of the country in past 3 weeks: No - Coronavirus Screening Are you exhibiting any of the following symptoms?: No Close contact with a COVID-19 positive Pt in past 14-21 Days: No - Vaccine Status Have you recieved a Covid-19 vaccination: Yes 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: [employer] - Vaccination Dates Date of 2cond Vaccination (if applicable): 07/17 Comment: booster done - Review of Systems Constitutional: No Symptoms Eyes: No Symptoms Ears, Nose, & Throat: No Symptoms Respiratory: No Symptoms Cardiac: No Symptoms Abdominal/Gastrointestinal: Abdominal Pain (Prepubic) Genitourinary Symptoms: Testicle Pain, Other (Scrotal swelling and pain) Musculoskeletal: No Symptoms Skin: No Symptoms Neurological: No Symptoms Psychological: No Symptoms Endocrine: No Symptoms Hematologic/Lymphatic: No Symptoms Immunological/Allergic: No Symptoms All Other Systems: Reviewed and Negative - Past Medical History Pertinent Past Medical History: Yes Neurological History: No Pertinent History ENT History: No Pertinent History, Other Cardiac History: High Cholesterol, Hypertension Respiratory History: Asthma Endocrine Medical History: Hypothyroidism Musculoskeletal History: No Pertinent History GI Medical History: No Pertinent History History: Dialysis, Renal Disease Psycho-Social History: No Pertinent History Male Reproductive Disorders: No Pertinent History Other Medical History: GOUT. CELLULITIS IVON LOWER EXTREMETIES. GLOMERUSCLEROSIS. STAGE IV KIDNEY DISEASE. POLYCETHEMIA. ARTERIOSCLEROSIS. 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 CYST REMOVED FROM TAILBONE 1966. CYST REMOVED FROM HEAD-1980; 1994; 2005. LEFT KNEE REPLACEMENT 01/2002 nichol 2013 knee replaced. fistula placed - Social History Smoking Status: Never smoker Exposure to second hand smoke: No Drug Use: none Patient Lives Alone: No Significant Family History: no pertinent family hx - Nursing Vital Signs Nursing Vital Signs: Initial Vital Signs Temperature 97.0 F 08/06/21 12:04 Pulse Rate 88 08/06/21 12:04 Blood Pressure 109/75 08/06/21 12:04 O2 Sat by Pulse Oximetry 96 08/06/21 12:04 Pain Scale Pain Intensity 0 - Physical Exam General Appearance: no apparent distress, alert, anxiety, obese Eye Exam: PERRL/EOMI, eyes nml inspection Ears, Nose, Throat Exam: normal ENT inspection, moist mucous membranes Neck Exam: normal inspection, non-tender, supple, full range of motion Respiratory Exam: normal breath sounds, lungs clear, No chest tenderness, No respiratory distress Cardiovascular Exam: regular rate/rhythm, normal heart sounds, normal peripheral pulses Gastrointestinal/Abdomen Exam: soft, normal bowel sounds, tenderness (Suprapubic), guarding (Suprapubic), rebound (? Suprapubic to palpation) Male Genitalia Exam: testicular tenderness, other (Scrotal swelling with tenderness) Rectal Exam: not done Back Exam: normal inspection, normal range of motion, No CVA tenderness, No vertebral tenderness Extremity Exam: normal inspection, normal range of motion, pelvis stable Neurologic Exam: alert, oriented x 3, cooperative, elevated guard II-XII nml as tested, normal mood/affect, nml cerebellar function, nml station & gait, sensation nml Skin Exam: normal color, warm, No dry Lymphatic Exam: No adenopathy SpO2 Interpretation: normal O2 Delivery: Room Air - Course Nursing assessment & vital signs reviewed: Yes Ordered Tests: Active Orders 24 hr Category Date Time Status Catheter-[place] Pedraza STAT Care 08/06/21 12:18 Active IV Insertion STAT Care 08/06/21 12:18 Active ABDOMEN AND PELVIS W/0 CONTRAS [CT] Stat Exams 08/06/21 12:18 Completed TESTICLE [US] Stat Exams 08/06/21 13:45 Completed AMYLASE Stat Lab 08/06/21 12:30 Completed BLOOD CULTURE Stat Lab 08/06/21 12:45 Received CBC W DIFF Stat Lab 08/06/21 12:30 Completed CMP Stat Lab 08/06/21 12:30 Completed CULTURE,URINE Stat Lab 08/06/21 12:37 Received LIPASE Stat Lab 08/06/21 12:30 Completed Lactic Acid Stat Lab 08/06/21 12:35 Completed PT INR [PROTIME WITH INR] Stat Lab 08/06/21 12:30 Completed UA W/RFX CULTURE Stat Lab 08/06/21 12:37 Completed Medication Summary Generic Name Dose Route Start Last Admin Trade Name Freq PRN Reason Stop Dose Admin Sodium Chloride 1,000 mls @ 50 mls/hr 08/06/21 12:30 08/06/21 12:58 Sodium Chloride 0.9% 1000 Ml IV 09/05/21 12:29 50 mls/hr .Q20H LOS Administration Discontinued Medications Generic Name Dose Route Start Last Admin Trade Name Freq PRN Reason Stop Dose Admin Levofloxacin/Dextrose 500 mg in 100 mls @ 100 mls/hr 08/06/21 14:22 08/06/21 15:51 Levofloxacin 500mg/100ml D5w IV 08/06/21 15:21 Infused STAT STA Infusion Levofloxacin/Dextrose Confirm 08/06/21 14:28 Levofloxacin 500mg/100ml D5w Administered 08/06/21 14:29 Dose 500 mg in 100 mls @ ud IV .STK-MED ONE Lab/Rad Data: Laboratory Result Diagrams 08/06/21 12:30 08/06/21 12:30 Laboratory Results 08/06/21 08/06/21 08/06/21 Range/Units 12:37 12:35 12:30 WBC (4.0-10.5) x10^3/uL RBC (4.1-5.6) x10^6/uL Hgb (12.5-18.0) g/dL Hct (42-50) % MCV (78-100) fL MCH (26-32) pg MCHC (32-36) g/dL RDW (11.5-14.0) % Plt Count (150-450) x10^3/uL MPV (7.5-11.0) fL Gran % (36.0-66.0) % Immature Gran % (Auto) (0.00-0.4) % Nucleat RBC Rel Count (0.00-0.1) % Eos # (Auto) (0-0.5) x10^3/uL Immature Gran # (Auto) (0.00-0.03) x10^3u/L Absolute Lymphs (auto) (1.0-4.6) x10^3/uL Absolute Monos (auto) (0.0-1.3) x10^3/uL Absolute Nucleated RBC (0.00-0.01) x10^3u/L Lymphocytes % (24.0-44.0) % Monocytes % (0.0-12.0) % Eosinophils % (0.00-5.0) % Basophils % (0.0-0.4) % Absolute Granulocytes (1.4-6.9) x10^3/uL Basophils # (0-0.4) x10^3/uL PT 18.1 H (9.4-12.5) SECONDS INR 1.80 (0.8-3.0) Sodium (137-145) mmol/L Potassium (3.5-5.1) mmol/L Chloride (98-107) mmol/L Carbon Dioxide (22-30) mmol/L Anion Gap (5-15) MEQ/L BUN (9-20) mg/dL Creatinine (0.66-1.25) mg/dL Estimated GFR ML/MIN Glucose (74-106) mg/dL Lactic Acid 2.0 (0.4-2.0) Calcium (8.4-10.2) mg/dL Total Bilirubin (0.2-1.3) mg/dL AST (17-59) U/L ALT (0-50) U/L Alkaline Phosphatase (38-126) U/L Serum Total Protein (6.3-8.2) g/dL Albumin (3.5-5.0) g/dL Amylase (30-110) U/L Lipase (23-300) U/L Urinalys Dipstick Clnc MAIN LAB Urine Color RED (YELLOW) Urine Appearance CLOUDY (CLEAR) Urine pH >=9.0 (5-6) Ur Specific [place] 1.015 (1.005-1.025) POC Urine Protein Conf >=300 (Negative) Urine Ketones MODERATE-40 (NEGATIVE) Urine Nitrite POSITIVE (NEGATIVE) Urine Bilirubin LARGE (NEGATIVE) Urine Urobilinogen >=8.0 (0-1) mg/dL Urine Leukocytes LARGE (NEGATIVE) Urine WBC (Auto) 26-50 (0-5) /HPF Urine RBC (Auto) 16-25 (0-2) /HPF U Epithel Cells (Auto) FEW (FEW) /HPF Urine Bacteria (Auto) FEW (NEGATIVE) /HPF Urine RBC LARGE (0-5) Christofer/ul Unidentified Crystals 5-10 (NEGATIVE) /HPF Other Casts (Auto) 25-50 (NEGATIVE) /LPF Urine Mucus (Auto) MANY (NEGATIVE) /HPF Ur Culture Indicated? YES Urine Glucose 250 (NEGATIVE) mg/dL 08/06/21 08/06/21 Range/Units 12:30 12:30 WBC 18.0 H (4.0-10.5) x10^3/uL RBC 3.10 L (4.1-5.6) x10^6/uL Hgb 9.6 L (12.5-18.0) g/dL Hct 30.1 L (42-50) % MCV 97.1 (78-100) fL MCH 31.0 (26-32) pg MCHC 31.9 L (32-36) g/dL RDW 14.6 H (11.5-14.0) % Plt Count 407 (150-450) x10^3/uL MPV 10.5 (7.5-11.0) fL Gran % 85.8 H (36.0-66.0) % Immature Gran % (Auto) 1.9 H (0.00-0.4) % Nucleat RBC Rel Count 0.0 (0.00-0.1) % Eos # (Auto) 0.42 (0-0.5) x10^3/uL Immature Gran # (Auto) 0.34 H (0.00-0.03) x10^3u/L Absolute Lymphs (auto) 0.71 L (1.0-4.6) x10^3/uL Absolute Monos (auto) 0.98 (0.0-1.3) x10^3/uL Absolute Nucleated RBC 0.00 (0.00-0.01) x10^3u/L Lymphocytes % 3.9 L (24.0-44.0) % Monocytes % 5.4 (0.0-12.0) % Eosinophils % 2.3 (0.00-5.0) % Basophils % 0.7 (0.0-0.4) % Absolute Granulocytes 15.45 H (1.4-6.9) x10^3/uL Basophils # 0.13 (0-0.4) x10^3/uL PT (9.4-12.5) SECONDS INR (0.8-3.0) Sodium 129 L (137-145) mmol/L Potassium 5.3 H (3.5-5.1) mmol/L Chloride 88 L (98-107) mmol/L Carbon Dioxide 26 (22-30) mmol/L Anion Gap 20.2 H (5-15) MEQ/L BUN 100 H (9-20) mg/dL Creatinine 8.59 H (0.66-1.25) mg/dL Estimated GFR 6.5 ML/MIN Glucose 113 H (74-106) mg/dL Lactic Acid (0.4-2.0) Calcium 9.3 (8.4-10.2) mg/dL Total Bilirubin 1.50 H (0.2-1.3) mg/dL AST 41 (17-59) U/L ALT 28 (0-50) U/L Alkaline Phosphatase 178 H (38-126) U/L Serum Total Protein 6.8 (6.3-8.2) g/dL Albumin 3.0 L (3.5-5.0) g/dL Amylase 174 H (30-110) U/L Lipase 891 H (23-300) U/L Urinalys Dipstick Clnc Urine Color (YELLOW) Urine Appearance (CLEAR) Urine pH (5-6) Ur Specific [place] (1.005-1.025) POC Urine Protein Conf (Negative) Urine Ketones (NEGATIVE) Urine Nitrite (NEGATIVE) Urine Bilirubin (NEGATIVE) Urine Urobilinogen (0-1) mg/dL Urine Leukocytes (NEGATIVE) Urine WBC (Auto) (0-5) /HPF Urine RBC (Auto) (0-2) /HPF U Epithel Cells (Auto) (FEW) /HPF Urine Bacteria (Auto) (NEGATIVE) /HPF Urine RBC (0-5) Christofer/ul Unidentified Crystals (NEGATIVE) /HPF Other Casts (Auto) (NEGATIVE) /LPF Urine Mucus (Auto) (NEGATIVE) /HPF Ur Culture Indicated? Urine Glucose (NEGATIVE) mg/dL - Progress Progress: improved, pain not gone completely, re-examined Progress Note: 08/06/21 14:31 Ultrasound of the scrotum shows bilateral orchitis. In addition, patient has le ft epididymitis with bilateral reactive hydrocele. The left hydrocele has low- level echoes/septations with possible pyocele. There is a right hydrocele present. 08/06/21 15:45 CAT scan of the abdomen pelvis without contrast shows status postembolization of left main renal artery in the past. There is a new very large left perinephric fluid/hematoma collection. It measures 15 cm x 12 cm. 08/06/21 16:[address] Khan, the emergency department physician at [facility] in [facility]. I reviewed the patient history, physical findings, results of the work-up that we performed here. Because of their bed situation they have to decline this patient. 08/06/21 17:43 Medical decision making: The patient will be transferred to [facility] in [facility]. They state they do have a bed available but not until this evening. I spoke with Dr. Farrar who spoke with his urologist. He accepts the patient in transfer. Counseled pt/family regarding: lab results, diagnosis, need for follow-up, rad results - Departure Departure Disposition: Transfer Clinical Impression: Renal failure, UTI (urinary tract infection), Epididymitis, Pyocele, Leukocytosis Condition: Stable Critical Care Time: Yes Critical Care Time(excluding separately billable procedures): Critical 30-74 mins Referrals: [facility] [Primary Care Provider] - Follow up/PCP as directed
[2021-08-06] MEDS ORDERED: Sodium Chloride 0.9% 1000 ML 1,000 ML ONE (12:58)
[2021-08-06 13:11] LABS: Absolute Neutrophil Ct (ANC) 15.45 x10^3/uL (1.4-6.9); Basophil (Absolute #) 0.13 x10^3/uL (0-0.4); Eosinophil % 2.3 % (0.00-5.0); Eosinophil (Absolute #) 0.42 x10^3/uL (0-0.5); Hematocrit 30.1 % (42-50); Hemoglobin 9.6 g/dL (12.5-18.0); Lymphocyte (Absolute #) 0.71 x10^3/uL (1.0-4.6); Lymphocytes % 3.9 % (24.0-44.0); Mean Cell Volume 97.1 fL (78-100); Mean Corpuscular Hgb Concent. 31.9 g/dL (32-36); Mean Platelet Volume 10.5 fL (7.5-11.0); Monocyte (Absolute #) 0.98 x10^3/uL (0.0-1.3); Monocytes % 5.4 % (0.0-12.0); Neutrophil % 85.8 % (36.0-66.0); Platelet Count 407 x10^3/uL (150-450); Red Cell Distribution Width 14.6 % (11.5-14.0)
[2021-08-06 13:14] LABS: INR 1.8 (0.8-3.0); PROTIME 18.1 SECONDS (9.4-12.5)
[2021-08-06 13:16] LABS: ANION GAP 20.2 MEQ/L (5-15); BILIRUBIN,TOTAL 1.5 mg/dL (0.2-1.3); Calcium 9.3 mg/dL (8.4-10.2); Creatinine 1 8.59 mg/dL (0.66-1.25); EST GLOMERULAR FILTRATION RATE 6.5 ML/MIN; Potassium 5.3 mmol/L (3.5-5.1); Total Protein 6.8 g/dL (6.3-8.2)
[2021-08-06 13:21] LABS: Appearance CLOUDY (CLEAR); Bilirubin LARGE (NEGATIVE); Glucose 250 mg/dL (NEGATIVE); Ketones MODERATE-40 (NEGATIVE); RBC LARGE Ery/ul (0-5); Specific Gravity 1.015 (1.005-1.025)
[2021-08-06 13:22] LABS: Dipstick done @ ? MAIN LAB; Nitrite POSITIVE (NEGATIVE); Ph >=9.0 (5-6); Protein,Urine Dip >=300 (Negative); Urobilinogen >=8.0 mg/dL (0-1)
[2021-08-06 13:24] LABS: Bacteria FEW /HPF (NEGATIVE); Epithelial Cells FEW /HPF (FEW); Mucus MANY /HPF (NEGATIVE); WBC 26-50 /HPF (0-5)
[2021-08-06 13:29] LABS: Urine Cultured Indicated? YES
--- NOTE | 2021-08-06 14:14 | XRAY ---
Indication: Scrotal swelling and tenderness left greater than right. Testicular sonogram performed. Comparison: None Both testicles are homogeneous in echogenicity and demonstrates normal hyperemic color Doppler flow favoring orchitis. Right epididymis demonstrates 6 mm cyst. Enlarged left epididymis with hyperemic color flow favoring epididymitis. Moderate bilateral scrotal hydroceles presumed reactive. Left scrotal hydrocele appears complex demonstrating low-level echoes/septations. Marked right-sided varicocele. Impression: 1. Sonographic features favoring bilateral orchitis and left-sided epididymitis with bilateral reactive hydroceles. Left hydrocele appears complex with low-level echoes/septations, possible pyocele in the right clinical setting. 2. Incidental right-sided varicocele and tiny right epididymal cyst.
[2021-08-06] MEDS ORDERED: Levofloxacin 500MG/100ML D5W 500 MG/100 ML BAG IV STA (14:22)
[2021-08-06] MEDS ORDERED: Levofloxacin 500MG/100ML D5W 500 MG/100 ML BAG IV ONE (14:28)
--- NOTE | 2021-08-06 15:22 | XRAY ---
Indication: Abdomen pain. Scrotal swelling. Hematuria and catheter bag. Multiple contiguous axial images obtained through the abdomen and pelvis without contrast. Comparison: April 19, 2021. Lung bases again demonstrates cardiomegaly with worsening moderate right effusion/compressive atelectasis and stable tiny left effusion. Again incidental bilateral gynecomastia and right infrahilar calcified nodes. Noncontrasted stomach and bowel loops nonobstructed with now mild diffuse scattered colonic fecal debris throughout including rectum. Again IVC filter in situ, tiny splenic calcified granulomas, and right renal atrophy with tiny cysts. There has been interval embolization of the entire left renal artery with embolization coils in situ. New very large left perinephric fluid/hematoma up to 15 x 12 cm in greatest axial dimension. Retroperitoneal fluid/hematoma further extends into the pelvis and left inguinal canal. Urinary bladder is empty with new Pedraza balloon catheter in situ. Remaining liver, gallbladder, pancreas, spleen, and adrenal glands unremarkable for noncontrast exam. Again heavy scattered vascular calcifications without AAA. Osseous structures intact again with osteopenia, degenerative changes throughout the visualized spine, mild levoscoliosis, and degenerative changes both hips. Again fatty inguinal hernias, left greater than right. Large bilateral scrotal hydroceles not previously imaged. Impression: 1. Status post embolization entire left main renal artery. New very large left perinephric fluid/hematoma as detailed. New Pedraza balloon catheter in situ. 2. Again cardiomegaly with worsening CHF. 3. New mild diffuse fecal stasis. 4. New bilateral scrotal hydroceles reported separately. 5. Continued chronic findings including right renal atrophy, extensive arteriosclerotic disease, bilateral fatty inguinal hernias, bilateral gynecomastia, chronic bony findings, and old granulomatous disease.
[2021-08-06 19:33] VITALS: O2SAT 95
[2021-08-06] MEDS ORDERED: Zofran 4 MG/2 ML VIAL IV ONE (20:22)
[2021-08-06] MEDS ORDERED: MORPHINE SULFATE 2 MG INJ IV ONE (20:22)
[2021-08-06] MEDS ORDERED: MORPHINE SULFATE 2 MG INJ ONE (20:39)
[2021-08-06] MEDS ORDERED: Zofran 4 MG/2 ML VIAL ONE (20:39)
[2021-08-06 20:57] VITALS: BP 113/64; PULSE 84
== END 2021-08-06 21:11 | disposition short-term general hospital (02) ==
LOC: ED 12:02
DX: N39.0 Urinary tract infection, site not specified (principal); N45.3 Epididymo-orchitis; N34.0 Urethral abscess; D72.829 Elevated white blood cell count, unspecified; I12.0 Hypertensive chronic kidney disease with stage 5 chronic kidney disease or end stage renal disease; N18.6 End stage renal disease; Z99.2 Dependence on renal dialysis; R10.2 Pelvic and perineal pain; N50.89 Other specified disorders of the male genital organs; E78.5 Hyperlipidemia, unspecified; H90.3 Sensorineural hearing loss, bilateral; Z79.01 Long term (current) use of anticoagulants; Z79.899 Other long term (current) drug therapy
CPT/HCPCS: 36000; 36415; 51702; 74176; 76870; 80053; 81015; 82150; 83605; 83690; 85025; 85610; 87040; 87077; 87086; 87186; 96374; 96375; 99285; 99291; J1956; J2270; J2405